=== PATIENT | female | born 1990 ===

== ENCOUNTER 2021-12-04 08:35 | Outpatient (REF) | payer OTHER, SELFPAY ==
[2021-12-04 09:06] LABS: Mean Corpuscular HGB Conc 33.3 g/dl (31.0-35.0); Mean Corpuscular Hemoglobin 29.6 pg (27.0-33.0); Mean Corpuscular Volume 88.8 fL (80.0-98.0); Mean Platelet Volume 10.2 fL (9.4-12.3); Platelet Count 270 X10*3/uL (160-400); Red Blood Count 4.73 X10*6/uL (4.20-5.50); Red Cell Distribution Width 12.3 % (11.0-16.0); White Blood Count 7.4 X10*3/uL (4.8-10.8)
[2021-12-04 09:53] LABS: Alanine Aminotransferase 11 U/L (0-31); Albumin Level 4.1 g/dL (3.5-5.0); Alkaline Phosphatase 55 U/L (39-117); Anion Gap 10 (12-20); Aspartate Amino Transferase 13 U/L (5-31); Bilirubin Total 0.6 mg/dL (0.0-1.0); Blood Urea Nitrogen 9 mg/dL (9-16); Calcium 9.2 mg/dL (8.4-10.2); Carbon Dioxide 25 mmol/L (22-29); Chloride 107 mmol/L (96-108); Estimated Glomerular Filt Rate > 60; Glucose Fasting 95 mg/dL (60-99); Potassium 4.4 mmol/L (3.3-5.1); Sodium 138 mmol/L (135-145); Total Protein 7.1 g/dL (6.5-8.0)
[2021-12-04 10:15] LABS: TSH reflex Free T4 1.66 uIU/mL (0.32-4.0)
== END 2021-12-04 08:36 | disposition home or self-care (01) ==
LOC: HO.LAB 08:35
PROVIDERS: PCP Physician Assistant; Visit Provider Physician Assistant
DX: Z13.29 Encounter for screening for other suspected endocrine disorder (principal)
CPT/HCPCS: 36415; 80053; 84443; 85027

== ENCOUNTER 2022-06-19 10:43 | Outpatient (REF) | payer OTHER, SELFPAY ==
--- NOTE | ~2022-06-19 | XR_ITS ---
EXAMINATION: XR SACRUM AND COCCYX CLINICAL INFORMATION: M53.3 - Sacrococcygeal disorders, not elsewhere classified COMPARISON: Lumbar spine radiographs 10/15/2015. TECHNIQUE: The sacrum and coccyx are imaged together in a total of 3 views. FINDINGS: There is transitional vertebrae at L5 with left hemisacralization right bhavna lumbarization. The SI joints and visualized sacrum are unremarkable. The lumbosacral junction shows no spondylolisthesis or retrolisthesis or disc narrowing. No erosive changes. Bowel gas unremarkable. Bony mineralization normal. XR/XR sacrum coccyx min 2V IMPRESSION: 1. 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 2. Unremarkable SI joints and visualized sacrum.
== END 2022-06-19 10:44 | disposition home or self-care (01) ==
LOC: HO.XRAY 10:43
PROVIDERS: PCP Physician Assistant; Visit Provider Physician Assistant
DX: M53.3 Sacrococcygeal disorders, not elsewhere classified (principal)
CPT/HCPCS: 72220

== ENCOUNTER 2022-10-21 13:17 | Outpatient (REF) | payer OTHER, SELFPAY | END 2022-10-21 13:18 | disposition home or self-care (01) | LOC: HO.LAB 13:17 | PROVIDERS: PCP Physician Assistant; Visit Provider Physician Assistant | DX: Z78.9 Other specified health status (principal) | CPT/HCPCS: 36415; 86787 ==

== ENCOUNTER 2023-03-06 09:14 | Outpatient (REF) | payer OTHER, SELFPAY ==
[2023-03-06 09:45] LABS: Hematocrit 41.9 % (37.0-47.0); Hemoglobin 14.2 g/dl (12.0-16.0); Mean Corpuscular HGB Conc 33.9 g/dl (31.0-35.0); Mean Corpuscular Hemoglobin 30.1 pg (27.0-33.0); Mean Corpuscular Volume 88.8 fL (80.0-98.0); Mean Platelet Volume 10.7 fL (9.4-12.3); Platelet Count 297 X10*3/uL (160-400); Red Blood Count 4.72 X10*6/uL (4.20-5.50); Red Cell Distribution Width 12.1 % (11.0-16.0); White Blood Count 6.8 X10*3/uL (4.8-10.8)
[2023-03-06 10:15] LABS: Alanine Aminotransferase 8 U/L (0-31); Albumin Level 4.2 g/dL (3.5-5.0); Alkaline Phosphatase 45 U/L (39-117); Anion Gap 10 (12-20); Aspartate Amino Transferase 13 U/L (5-31); Bilirubin Total 0.4 mg/dL (0.0-1.0); Blood Urea Nitrogen 9 mg/dL (9-16); Calcium 9.5 mg/dL (8.4-10.2); Carbon Dioxide 27 mmol/L (22-29); Chloride 105 mmol/L (96-108); Estimated Glomerular Filt Rate > 60; Glucose Fasting 93 mg/dL (60-99); Potassium 4.1 mmol/L (3.3-5.1); Sodium 138 mmol/L (135-145); Total Protein 7.2 g/dL (6.5-8.0)
== END 2023-03-06 09:15 | disposition home or self-care (01) ==
LOC: HO.LAB 09:14
PROVIDERS: PCP Physician Assistant; Visit Provider Physician Assistant
DX: Z13.1 Encounter for screening for diabetes mellitus (principal); Z13.0 Encounter for screening for diseases of the blood and blood-forming organs and certain disorders involving the immune mechanism
CPT/HCPCS: 36415; 80053; 85027

== ENCOUNTER 2023-09-25 09:19 | Outpatient (AMB) | payer OTHER, SELFPAY ==
--- NOTE | 2023-09-25 10:14 | MHC.OFFWIV ---
Intake Vital Signs 09/25/23 10:15 Height 4 ft 11 in BP 110/70 Blood Pressure Location Rt brachial Position Sitting Pulse 76 Pulse Source Pulse Oximeter Temp 98.8 F Temp Source Oral Pulse Oximetry (%) 99 Oxygen Delivery Method Room Air Intake Visit Reasons: Sore throat Intake Note: Pt is here for a sore throat that started last night at 8 pm and she feels like it is going into her ears and is bothering her ears Patient Tobacco Use Status: Never used Tobacco Allergies amoxicillin Adverse Reaction (Intermediate, Verified 09/25/23 10:17) Vomiting HPI Sore throat HPI Details Patient is a 33-year-old female comes to the walk-in clinic complaining of acute sore throat started last night, that radiates to both of her ears. She reports that her kids had influenza last week, but no strep throat contacts that she is aware of. She denies postnasal drip, cough, fever or chills, nausea vomiting or diarrhea, headache or dizziness or vertigo, weakness, myalgias or malaise, loss of sense of taste or smell, or other significant associated symptoms. [facility] Surgical History History of wisdom tooth extraction History of salpingectomy Family History Mother Diabetes Hypercholesteremia Father No problems noted. Maternal Grandmother Stroke Sister Leukemia Other Mental health disorder Substance use disorder Social History Housing: House Alcohol intake: current Alcohol intake frequency: holidays/special occasions only Alcohol type: beer Patient Tobacco Use Status: Never used Tobacco e-Cigarette/Vaping Use: Never Used Second Hand Smoke Exposure: No service: No Current occupational status: employed Current occupation: [employer] Current occupational exposures/hazards: No Cognitive needs: No Hearing needs: No Vision needs: Yes (contacts/ glasses) Review of Systems Const All systems reviewed & are unremarkable except as noted in HPI and below Physical Exam Vital Signs: Last Vital Signs Temp 98.8 F 09/25/23 10:15 Pulse 76 09/25/23 10:15 BP 110/70 09/25/23 10:15 Pulse Ox 99 09/25/23 10:15 Oxygen Delivery Method Room Air 09/25/23 10:15 Const General: cooperative, healthy appearing, comfortable, no acute distress, alert, awake, Physically active and well groomed; No anxious, diaphoretic, intoxicated appearing, poor hygiene or tired appearing Nutritional Appearance: average body habitus Orientation/consciousness: oriented to person Limitations: no limitations HEENT Head: Yes normal to inspection, Yes normocephalic and Yes atraumatic Ears: hearing grossly normal bilaterally, external ears normal, TM's normal bilaterally and EAC's normal General nose exam: Normal external nose present, Normal nares present, No nasal polyps present, Normal nasal mucous membranes and turbinates present, Normal septum present and No nasal discharge present Face and sinus: Yes normal facial exam, Yes sinuses nontender and Yes face symmetric Mouth: Normal oral and palatal mucosa present, lip normal and tongue normal Throat: Yes uvula midline, Yes abnormal tonsil (mildly erythematous bilaterally), No peritonsillar mass, No postnasal drainage, No uvular edema and No cobblestoning Eyes General: appearance normal, both eyes and all related structures Neck Neck: Yes normal visual inspection, Yes full ROM, Yes no lymphadenopathy, Yes trachea midline, Yes supple, No anterior neck swelling, Yes lymphadenopathy, Yes tender (Anterior cervical lymphadenopathy), Yes no JVD and No submandibular swelling Chest Chest palpation & inspection: normal palpation of entire chest wall Resp Effort & Inspection: normal respiratory effort, able to speak in complete sentences, no audible wheezes, no cough, no grunting, not labored, no nasal flaring, no retractions and symmetric chest movement Auscultation: clear to auscultation bilaterally, no crackles, no rales, no rhonchi, no wheezes, lung sounds not diminished and No rub present Cardio Palpation: normal PMI Rate: regular rate Rhythm: regular rhythm Heart sounds: S1 normal heart sound present and S2 normal heart sound present Skin Other: Good color, warm and dry Neuro General: oriented to person Psych Appearance: grossly normal Mental Status: mental status grossly normal Speech and movement: Normal speech and movement present Affect: normal affect Attitude: cooperative Thought process: Normal thought process present Insight: Good insight present (Psych) Judgement: Good judgement present (Psych) Results AMB Rapid Strep AMB Rapid Strep Positive Last Edit by Cherrie Etienne CMA on 09/25/23 10:31 Results Reviewed Results Reviewed: Laboratory Last Values Strep Scn Rapid Clinic Positive 09/25/23 10:31 Assessment & Plan Assessment & Plan (1) Strep pharyngitis: Code(s): J02.0 - Streptococcal pharyngitis Plan: Patient with acute strep pharyngitis, positive on rapid strep test today. Will write her for cephalexin as she has a severe reaction with vomiting to penicillins. Discussed transmission precautions. Pending respiratory panel to rule out flu COVID and RSV. She knows to follow up if symptoms persist or worsen. Orders: Orders SARS-CoV2/FLU/RSV Today R05.9 - Cough, unspecified AMB Rapid Strep Screen Today Z13.9 - Encounter for screening, unspecified Medications: New cephalexin 500 mg PO BID 10 days 20 caps 0RF Coding Level of Care Code Est Pt Level 4 (53732) Diagnoses Strep pharyngitis J02.0
[2023-09-25 10:15] VITALS: BP 110/70; PULSE 76; TEMP 37.1; O2SAT 99
== END 2023-09-25 11:30 | disposition home or self-care (01) ==
PROVIDERS: PCP Physician Assistant; Visit Provider Physician Assistant Medical
DX: J02.0 Streptococcal pharyngitis (principal); J02.9 Acute pharyngitis, unspecified
CPT/HCPCS: 87880; 99051; 99214

== ENCOUNTER 2023-09-25 13:40 | Outpatient (REF) | payer OTHER, SELFPAY ==
[2023-09-25 15:02] LABS: Influenza A PCR NEGATIVE (Negative); Influenza B PCR NEGATIVE (Negative); Resp Syncy Virus RNA Qual PCR NEGATIVE (Negative); SARS COV2 PCR INHOUSE NEGATIVE (Negative)
== END 2023-09-25 13:41 | disposition home or self-care (01) ==
LOC: HO.LNP 13:40
PROVIDERS: Visit Provider Physician Assistant Medical
DX: R05.9 Cough, unspecified (principal)
CPT/HCPCS: 0241U

== ENCOUNTER 2023-12-14 15:46 | Outpatient (AMB) | payer OTHER, SELFPAY ==
--- NOTE | 2023-12-14 15:48 | MHC.PC.OV ---
Vital Signs 12/14/23 15:53 Height 4 ft 11 in Weight 153 lb 6 oz BMI 31.0 BP 110/66 Blood Pressure Location Lt brachial Position Sitting Pulse 80 Pulse Source Pulse Oximeter Pulse Oximetry (%) 99 Oxygen Delivery Method Room Air Intake Visit Reasons: Annual Exam Intake Note: Patient is here today for a physical. 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 Accompanied by: Self / Same As Patient Is last menstrual period known: Yes Last menstrual period: 12/12/23 Allergies amoxicillin Adverse Reaction (Intermediate, Verified 12/14/23 16:08) Vomiting Medication List - Last Reconciled 12/14/23 by Parviz Joshi PA-C No Known Home Meds Tobacco use date assessed: 12/14/23 Dental Screening Dental Screen Date: 12/14/23 Did you have a dental visit in the last 12 months?: Yes Did you have a dental problem in the last 6 months where you did not have access to dental care?: No Was dental information given to patient?: Patient has dentist HPI Annual Exam HPI Details Patient is a 33-year-old female here today for a annual physical.? Patient does not have any past medical history does not take any chronic medications. Concerns-- > reports last few weeks having intermittent episodes of palpitations that are short-lived. She otherwise denies any dizziness, chest pain vision issues. .. Obesity: Today's BMI at 31. She feels somewhat upset with herself as she is gained some more weight. She will try to work hard on losing weight again. 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 does get a flu vac every year, Needs Tdap [facility] Surgical History History of wisdom tooth extraction History of salpingectomy Family History Mother Diabetes Hypercholesteremia Father No problems noted. Maternal Grandmother Stroke Sister Leukemia Other Mental health disorder Substance use disorder Social History (Updated 12/14/23 @ 16:12 by Parviz Joshi PA-C) Housing: House Alcohol intake: current Alcohol intake frequency: holidays/special occasions only Alcohol type: beer Patient Tobacco Use Status: Never used Tobacco e-Cigarette/Vaping Use: Never Used Second Hand Smoke Exposure: No Substance Use Type: Marijuana service: No Current occupational status: employed Current occupation: [employer] Current occupational exposures/hazards: No Cognitive needs: No Hearing needs: No Vision needs: Yes (contacts/ glasses) Female Reproductive History Menstrual Date of last menstrual period: 12/12/23 Questionnaire PHQ-9 Over the last 2 weeks, how often have you been bothered by any of the following problems? 1. Little interest or pleasure in doing things: not at all 2. Feeling down, depressed, or hopeless: not at all 3. Trouble falling or staying asleep, or sleeping too much: not at all 4. Feeling tired or having little energy: not at all 5. Poor appetite or overeating: not at all 6. Feeling bad about yourself - or that you are a failure or have let yourself or your family down: not at all 7. Trouble concentrating on things, such as reading the newspaper or watching television: not at all 8. Moving or speaking so slowly that other people could have noticed. Or the opposite - being so fidgety or restless that you have been moving around a lot more than usual: not at all 9. Thoughts that you would be better off or of hurting yourself in some way: not at all Total score: 0 Depression Screening Interpretation: Negative Depression Screening Done: Yes 61925 - PHQ-9 Billing: Yes Source: Developed by Drs. Abe Loya, Manju Lagunas, Onur Santos and colleagues, with an educational blake from [employer]. Thrive Questionnaire Date Thrive assessed: 12/14/23 I am a: Patient What is your living situation today?: I have a steady place to live Within the past 12 months, did the food you bought not last and you didn't have the money to get more?: Never true Within the past 12 months, did you worry whether your food would run out before you got money to buy more?: Never true Do you have trouble paying for medicines?: No Do you have trouble getting transportation to medical appointments?: No Do you have trouble paying your heating and electricity bill?: No Do you have trouble taking care of your child, family member or friend?: No Do you have trouble with day-to-day activities such as bathing, preparing meals, shopping, managing finances, etc.?: No Are you currently unemployed and looking for a job?: No Are you interested in more education?: No Please select the resources that you would like help with: None Currently or been in a relationship where the following occur: no concerns reported THRIVE Score: 0 AUDIT C Alcohol Use Questionnaire (AUDIT-C) 1. How often do you have a drink containing alcohol?: Never 2. How many drinks containing alcohol do you have on a typical day when you are drinking?: 1 or 2 Total Score: 0 CISCO-7 AMB Questionnaire CISCO-7 Date CISCO - 7 assessed: 12/14/23 Feeling nervous, anxious, or on edge: 1 = Several days Not being able to stop or control worryin = Not at all Worrying too much about different things: 1 = Several days Trouble relaxin = Several days Being so restless that it is hard to sit still: 0 = Not at all Becoming easily annoyed or irritable: 0 = Not at all Feeling afraid as if something awful might happen: 0 = Not at all Total CISCO-7 score (0-4 normal; 5-9 mild; 10-14 moderate; 15-21 severe): 3 Source: Developed by Drs. Abe Loya, Manju Lagunas, Onur Santos and colleagues, with an educational blake from [employer]. CISCO-7 Assessment Billing CISCO-7 Assessment Tool: CISCO-7 Assessment 37635 Review of Systems Const Denies body aches, Denies chills, Denies excessive sweating, Denies fatigue, Denies fever(s) and Denies headache(s) Eyes Denies blurry vision ENT Denies dysphagia, Denies vertigo, Denies dizziness, Denies headache(s), Denies hearing loss and Denies tinnitus Card Denies chest pain, Denies chest pain with activity, Denies syncope, Reports irregular heart rhythm and Denies dyspnea Resp Denies chest congestion, Denies cough, Denies hemoptysis, Denies dyspnea and Denies wheezing GI Denies abdominal pain, Denies melena, Denies hematochezia, Denies coffee ground emesis, Denies dysphagia, Denies diarrhea, Denies nausea and Denies vomiting Denies urinary frequency, Denies dysuria, Denies urinary hesitancy and Denies urinary urgency Musc Denies arthralgias, Denies limited range of motion, Denies muscle cramps and Denies muscle weakness Skin/Breast Denies rash and Denies skin ulcer Neuro Denies Abnormal speech present, Denies confusion, Denies vertigo, Denies dizziness, Denies syncope, Denies headache(s), Denies memory loss and Denies seizure-like activity Psych Denies anxiety, Denies confusion, Denies depression, Denies memory loss, Denies panic attacks and Denies paranoia Endo Denies excessive sweating, Denies fatigue, Denies flushing, Denies polydipsia and Denies polyuria Aller/Immun Denies wheezing Physical exam (Primary Care) Vital Signs: Last Vital Signs Pulse 80 12/14/23 15:53 BP 110/66 12/14/23 15:53 Pulse Ox 99 12/14/23 15:53 Oxygen Delivery Method Room Air 12/14/23 15:53 BMI result Body Mass Index 31.0 Tobacco/Smoking Status: Tobacco use Status Tobacco use date assessed 12/14/23 12/14/23 15:56 Patient Tobacco Use Status Never used Tobacco 12/14/23 16:12 e-Cigarette/Vaping Use Never Used 12/14/23 16:12 PHQ-9: PHQ-9 Score PHQ-9: Total score 0 12/14/23 16:13 Depression Screening Interpretation: Negative Thrive Assessment: Date of Thrive Assessment Date Thrive assessed 12/14/23 12/14/23 15:48 Currently or been in a relationship where the following occur: no concerns reported Const General: cooperative, comfortable, no acute distress, alert and awake; No confusion Orientation/consciousness: oriented to person, oriented to place, patient oriented x3 and No confusion HENMT Head: Yes normocephalic Ears: external ears normal and TM's normal bilaterally Face and sinus: No sinus tenderness Mouth: Normal oral and palatal mucosa present and tongue normal Teeth and gingiva: dentition normal and gingiva normal Throat: Yes posterior oropharynx normal, Yes tonsils normal and Yes uvula midline Eyes Conjunctivae: conjunctivae normal Sclerae: sclerae normal Pupils: Equal, round and reactive pupils present EOM: EOMs intact bilaterally Direct Ophthalmoscopy: No no photophobia Neck Neck: Yes no lymphadenopathy, No tender and Yes no JVD Thyroid: Thyroid normal Carotids: no bruits Chest Chest palpation & inspection: no tenderness Resp Effort & Inspection: normal respiratory effort, no audible wheezes, not labored and no stridor Auscultation: no crackles, no rales, no rhonchi and no wheezes Cardio Jugular venous distension: no JVD Rate: regular rate, not bradycardic and not tachycardic Rhythm: regular rhythm Bruits: no carotid bruits Peripheral pulses: Peripheral pulses 2+ throughout GI Inspection: Yes normal to inspection, No abdominal wall ecchymosis and No visible herniation Palpation (GI): Soft to palpation, nontender, no guarding, not rigid and No hepatosplenomegaly present Auscultation: normoactive bowel sounds General: Yes no CVA tenderness Back/Spine/Pelvis Back: no CVA tenderness and No back tenderness Cervical Spine: cervical ROM normal Thoracic/Lumbar Spine: thoracic and lumbar spine normal to inspection, straight leg raise negative bilaterally, No thoraco-lumbar ROM limited and No lumbar spinal tenderness Skin Lesions: no lesions Rashes: no rashes Wounds: no wounds Neuro General: oriented to person, oriented to place, patient oriented x3, CN's II-XI intact bilaterally and No confusion Cranial nerves: Yes Equal, round and reactive pupils present and Yes Normal accommodation reflex present Cognition (Neuro): normal cognition Speech: No Abnormal speech present Gait exam (Neuro): Normal gait present Motor exam (neuro): 5/5 motor strength present throughout Extrem Right upper extremity: full ROM; no cyanosis Left upper extremity: full ROM; no cyanosis Right lower extremity: no edema Left lower extremity: no edema Psych Appearance: grossly normal Mental Status: mental status grossly normal Affect: normal affect Attitude: cooperative Thought process: Normal thought process present Immunizations Boostrix Tdap 2.5 Lf unit-8 mcg-5 Lf/0.5 mL intramuscular syringe Performing Provider: Parviz Joshi PA-C Performing Location: [facility] Administered by: MAXIMILIAN Martínez on 12/14/23 16:37 Dose Route Admin Location Dispensed Lot Number Expiration Date NDC 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 0.5 mL IM Left Deltoid 0.5 mL [id number] 02/03/26 [id number] [employer] VIS Given Date VIS Provided VIS Publication Date 06/18/24 Single Vaccine 21 Eligibility Eligibility Date Funding Source Not [facility] Eligible 12/14/23 Private Assessment and Plan Assessment & Plan (1) Annual physical exam: Code(s): Z00.00 - Encounter for general adult medical examination without abnormal findings (2) Screening for diabetes mellitus (DM): Code(s): Z13.1 - Encounter for screening for diabetes mellitus (3) Heart palpitations: Code(s): R00.2 - Palpitations (4) Anxiety: Code(s): F41.9 - Anxiety disorder, unspecified Plan: Patient's CISCO-7 score 3, does seem to be suffering with the mild anxiety. Not interested in medication or mental health therapy at this time. Orders: Orders Comprehensive [place]. Panel Fast Today Z13.1 - Encounter for screening for diabetes mellitus Complete Blood Count no Diff Today Z13.1 - Encounter for screening for diabetes mellitus TDaP Immunization Today Z13.1 - Encounter for screening for diabetes mellitus, Z23 - Encounter for immunization ECG 5 day holter monitor Today R00.2 - Palpitations Medications: New Boostrix Tdap (diphth,pertus(acell),tetanus) 0.5 mL IM ONCE 0.5 mL 0RF NS Z13.1 - Encounter for screening for diabetes mellitus, Z23 - Encounter for immunization Coding Level of Care Code Est Pt Prev Care 18-39y(90025) Diagnoses Annual physical exam Z00.00 Screening for diabetes mellitus (DM) Z13.1 Heart palpitations R00.2 Anxiety F41.9 Additional Codes CISCO-7 Assessment Billing - CISCO-7 Assessment Tool: CISCO-7 Assessment 29704 ([id number])
[2023-12-14 15:53] VITALS: BP 110/66; PULSE 80; O2SAT 99; BMI 31.0
== END 2023-12-14 16:31 | disposition home or self-care (01) ==
PROVIDERS: PCP Physician Assistant; Visit Provider Physician Assistant
DX: Z23 Encounter for immunization (principal); Z00.00 Encounter for general adult medical examination without abnormal findings; R00.2 Palpitations; F41.9 Anxiety disorder, unspecified
CPT/HCPCS: 90471; 90715; 99395

== ENCOUNTER → 2023-12-29 06:36 | Outpatient (REF) | payer OTHER, SELFPAY ==
--- NOTE | 2023-12-29 07:05 | HM_ITS ---
* Total monitoring time 5 days. * Underlying rhythm is sinus with an average rate of 77/Min. * Rare supraventricular ectopy with very short runs. * Rare ventricular ectopy. * No significant pauses or AV blocks. * No patient markers or diary events. MTDD
[2023-12-29 07:42] LABS: Hematocrit 40.8 % (37.0-47.0); Hemoglobin 13.7 g/dl (12.0-16.0); Mean Corpuscular HGB Conc 33.6 g/dl (31.0-35.0); Mean Corpuscular Hemoglobin 30.4 pg (27.0-33.0); Mean Corpuscular Volume 90.5 fL (80.0-98.0); Mean Platelet Volume 10.7 fL (9.4-12.3); Platelet Count 309 X10*3/uL (160-400); Red Blood Count 4.51 X10*6/uL (4.20-5.50); Red Cell Distribution Width 12.2 % (11.0-16.0); White Blood Count 6.9 X10*3/uL (4.8-10.8)
[2023-12-29 08:03] LABS: Alanine Aminotransferase 11 U/L (0-31); Albumin Level 4.3 g/dL (3.5-5.0); Alkaline Phosphatase 48 U/L (39-117); Anion Gap 9 (12-20); Aspartate Amino Transferase 17 U/L (5-31); Bilirubin Total 0.8 mg/dL (0.0-1.0); Blood Urea Nitrogen 10 mg/dL (9-16); Calcium 9.6 mg/dL (8.4-10.2); Carbon Dioxide 26 mmol/L (22-29); Chloride 107 mmol/L (96-108); Estimated Glomerular Filt Rate > 60; Glucose Fasting 91 mg/dL (60-99); Potassium 3.6 mmol/L (3.3-5.1); Sodium 138 mmol/L (135-145); Total Protein 7.2 g/dL (6.5-8.0)
== END ==
LOC: HO.CARD 06:36
PROVIDERS: PCP Physician Assistant; Visit Provider Physician Assistant
DX: Z13.1 Encounter for screening for diabetes mellitus (principal); R00.2 Palpitations
CPT/HCPCS: 36415; 80053; 85027; 93242

== ENCOUNTER → 2023-12-29 07:05 | Outpatient (BNV) | payer OTHER, SELFPAY | PROVIDERS: PCP Physician Assistant; Visit Provider Internal Medicine | DX: I47.10 Supraventricular tachycardia, unspecified (principal) | CPT/HCPCS: 93244 ==

== ENCOUNTER 2024-07-04 15:46 | Outpatient (AMB) | payer OTHER, SELFPAY ==
[2024-07-04 15:57] VITALS: BP 122/76; PULSE 83; TEMP 36.8; O2SAT 97; BMI 31.3
--- NOTE | 2024-07-04 15:57 | AM.OFFWIN_ITS ---
Intake Vital Signs 07/04/24 15:57 Height 4 ft 11 in Weight 155 lb BMI 31.3 BP 122/76 Blood Pressure Location Rt brachial Position Sitting Pulse 83 Pulse Source Pulse Oximeter Temp 98.3 F Temp Source Oral Pulse Oximetry (%) 97 Oxygen Delivery Method Room Air Intake Visit Reasons: EP sore throat Intake Note: Pt is here today c/o sorethroat Patient Tobacco Use Status: Never used Tobacco Allergies amoxicillin Adverse Reaction (Intermediate, Verified 07/04/24 15:57) Vomiting HPI HPI Comments History of Present Illness Details Ongoing ST pain She admits to congestion x 2 weeks Sinuses improved and she was negative for covid Lastnight onset in throat Pain in throat with white spots She denies fever or chills She denies medicine for it No cough, SOB or CP PFSH Surgical History History of wisdom tooth extraction History of salpingectomy Family History Mother Diabetes Hypercholesteremia Father No problems noted. Maternal Grandmother Stroke Sister Leukemia Other Mental health disorder Substance use disorder Social History (Updated 12/14/23 @ 16:12 by Parviz Joshi PA-C) Housing: House Alcohol intake: current Alcohol intake frequency: holidays/special occasions only Alcohol type: beer Patient Tobacco Use Status: Never used Tobacco e-Cigarette/Vaping Use: Never Used Second Hand Smoke Exposure: No Substance Use Type: Marijuana service: No Current occupational status: employed Current occupation: [employer] Current occupational exposures/hazards: No Cognitive needs: No Hearing needs: No Vision needs: Yes (contacts/ glasses) Review of Systems Const Denies chills and Denies fever(s) ENT Denies otalgia, Reports nasal congestion and Reports sore throat Card Denies chest pain and Denies dyspnea Resp Denies cough and Denies dyspnea Skin/Breast Denies rash Physical Exam Vital Signs: Last Vital Signs Temp 98.3 F 07/04/24 15:57 Pulse 83 07/04/24 15:57 BP 122/76 07/04/24 15:57 Pulse Ox 97 07/04/24 15:57 Oxygen Delivery Method Room Air 07/04/24 15:57 BMI result Body Mass Index 31.3 General: Non-toxic, NAD. Speaking full sentences, handling secretions Skin: Warm dry throughout Eye: EOMI HENT: Airway patent. Uvula midline. + pharyngeal erythema without exudates, trismus or edema. No SEQUINS SPOOLER. Bilateral canals clear. TM non-erythematous, non-bulging. No TM perforation or hemotympanum noted. Respiratory: No respiratory distress Cardiac: RRR. Neurology: Alert. No aphasia or facial droop. Gait without abnormality Psych: Good mood and affect Results AMB Rapid Strep AMB Rapid Strep Positive Last Edit by Darling Dumont CMA on 07/04/24 16:17 Results Reviewed Results Reviewed: Laboratory Last Values Strep Scn Rapid Clinic Positive 07/04/24 16:04 Assessment & Plan Assessment & Plan (1) Strep pharyngitis: Code(s): J02.0 - Streptococcal pharyngitis Plan: Patient seen and evaluated. + strep on exam Azithromycin New toothbrush after antibiotics Patient gave verbal understanding and had no additional questions or concerns at time of discharge All questions answered Orders: Orders AMB Rapid Strep Screen Today Z13.9 - Encounter for screening, unspecified Medications: New azithromycin For 250 mg dose pack: take 500 mg today (day 1), then 250 mg for 4 days (days 2-5) PO 6 tabs 0RF Coding Level of Care Code Est Pt Level 3 (68990) Diagnoses Strep pharyngitis J02.0
== END 2024-07-04 16:27 | disposition home or self-care (01) ==
PROVIDERS: PCP Physician Assistant; Visit Provider Physician Assistant
DX: Z13.9 Encounter for screening, unspecified (principal); J02.0 Streptococcal pharyngitis

== ENCOUNTER → 2024-07-04 15:46 | Outpatient (BNVA) | payer OTHER, SELFPAY | PROVIDERS: PCP Physician Assistant; Visit Provider Physician Assistant | DX: J02.0 Streptococcal pharyngitis (principal) | CPT/HCPCS: 87880 ==

== ENCOUNTER 2024-08-29 12:16 | Outpatient (AMB) | payer OTHER, SELFPAY ==
[2024-08-29 12:47] VITALS: BP 112/70; PULSE 72; TEMP 36.8; O2SAT 99
--- NOTE | 2024-08-29 12:47 | MHC.OFFWIV ---
Intake Vital Signs 08/29/24 12:47 Weight 152 lb BP 112/70 Blood Pressure Location Rt brachial Position Sitting Pulse 72 Pulse Source Pulse Oximeter Temp 98.2 F Temp Source Oral Pulse Oximetry (%) 99 Oxygen Delivery Method Room Air Intake Visit Reasons: EP Strep? Intake Note: Patient here for sore throat that has been present since Wednesday. Patient Tobacco Use Status: Never used Tobacco Allergies amoxicillin Adverse Reaction (Intermediate, Verified 08/29/24 12:59) Vomiting Do you need a note to return to daycare/school/sports/work: Yes HPI HPI Comments History of Present Illness Details History - The patient is a 34-year-old female presenting with a possible strep throat. - Reports a sore throat with blood in the back of the throat for two days. - Sore throat associated with pain on swallowing and throat palpation; no fever present. - Recurrent history of strep throat infections; a potential ENT referral was previously considered. - Previously resolved similar infection with a Z-Jef due to amoxicillin allergy. - Denies cough, mentions increased sneezing. 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 Physical Exam General: Cooperative, healthy appearing, comfortable and no acute distress Orientation/consciousness: Patient oriented x3 Limitations: No limitations Head: Normal to inspection Ears: Hearing grossly normal bilaterally, external ears normal Nose: Normal external nose present, Normal nares present and No nasal discharge present Face and sinus: Normal facial exam Mouth: Normal oral and palatal mucosa present and moist mucous membranes Throat: Yes tonsils normal, Yes uvula midline. Posterior oropharynx erythema with exudates noted Eyes: Appearance normal, both eyes and all related structures Neck: Normal visual inspection Respiratory: Normal respiratory effort, able to speak in complete sentences, No cough, no respiratory distress, not tachypneic, no tripod positioning and no use of accessory muscles Skin: No rashes or lesions noted Neuro: Patient oriented x3 Extremities: Normal to inspection and Yes no clubbing, cyanosis or edema PFSH Surgical History History of wisdom tooth extraction History of salpingectomy Family History Mother Diabetes Hypercholesteremia Father No problems noted. Maternal Grandmother Stroke Sister Leukemia Other Mental health disorder Substance use disorder Social History (Updated 12/14/23 @ 16:12 by Parviz Joshi PA-C) Housing: House Alcohol intake: current Alcohol intake frequency: holidays/special occasions only Alcohol type: beer Patient Tobacco Use Status: Never used Tobacco e-Cigarette/Vaping Use: Never Used Second Hand Smoke Exposure: No Substance Use Type: Marijuana service: No Current occupational status: employed Current occupation: [employer] Current occupational exposures/hazards: No Cognitive needs: No Hearing needs: No Vision needs: Yes (contacts/ glasses) Review of Systems Const All systems reviewed & are unremarkable except as noted in HPI and below Physical Exam Vital Signs: Last Vital Signs Temp 98.2 F 08/29/24 12:47 Pulse 72 08/29/24 12:47 BP 112/70 08/29/24 12:47 Pulse Ox 99 08/29/24 12:47 Oxygen Delivery Method Room Air 08/29/24 12:47 Results AMB Rapid Strep AMB Rapid Strep Positive Last Edit by MAXIMILIAN Romano on 08/29/24 13:12 Assessment & Plan Assessment & Plan (1) Recurrent streptococcal pharyngitis: Code(s): J02.0 - Streptococcal pharyngitis Plan: Rapid strep in office is positive, PE remarkable for exudates in posterior oropharynx. The patient exhibits symptoms indicative of recurrentl strep throat. Due to her allergy to amoxicillin and history of successful resolution with azithromycin, Azithromycin was prescribed in a Z-Jef regimen for five days. The patient is to commence the medication immediately to alleviate symptoms. Supportive measures include hydration with cool liquids and ibuprofen for discomfort. Tylenol is advised if fever develops. An ENT consultation has been sent by her PCP for the repeated nature of these infections. A work excuse was given for the appropriate days needed for recovery upon initiation of antibiotic therapy. Patient was informed and verbally consented to the use of an ambient scribe for clinic note documentation during this visit Orders: Orders AMB Rapid Strep Screen Today Z13.9 - Encounter for screening, unspecified Medications: New azithromycin For 250 mg dose pack: take 500 mg today (day 1), then 250 mg for 4 days (days 2-5) PO 6 tabs 0RF Coding Level of Care Code Est Pt Level 3 (59008) Diagnoses Recurrent streptococcal pharyngitis J02.0
--- OUTSIDE RECORDS SUMMARY | 2024-08-29 15:20 | XMS_ITS | Encounter Summary ---
Author Organization [facility] Address [address] [place] [address] Care Team Providers Care Dietist Name Role Phone Aj Langston MD Primary Care Provider Un available Mee Gordon MD Primary Care Provider Orville Sears MD Primary Care Provider Unavail able Jason Post MD Primary Care Provider + [phone] Encounter Details Date Type Department Care Team Description 02/22/2018 Pt. Non Urgent Medic al Question Adult Medicine [address] [address] Aj Langston MD Social History Tobacco Use Types Packs/Day Years Used Date Smoking Tobacco: Never Smokeless Tobacco: Never Alcohol Use Standard Drinks/Week Comments No 0 (1 standard drink = 0.6 oz pur e alcohol) Financial Resource Strain Answer Date R ecorded How hard is it for you to pa y for the very basics like food, housing, medical care, and heating? Not very hard 02/19/2020 Intimate Partner Violence Answer Date R ecorded Within the last year, have y ou been afraid of your partner or ex-partner? No 01/24/2020 Within the last year, have y ou been humiliated or emotionally abused in other ways by your partner or ex-partner? No Within the last year, have y ou been kicked, hit, slapped, or otherwise physically hurt by your partner or ex-partner? No 01/24/2020 Within the last year, have y ou been raped or forced to have any kind of sexual activity by your partner or ex-partner? No 01/24/2020 Food Insecurity Answer Date Recorded Within the past 12 months, y ou worried that your food would run out before you got money to buy more. Never true 02/19/2020 Within the past 12 months, t he food you bought just didn't last and you didn't have money to get more. Never true 02/19/2020 Transportation Needs Answer Date Record ed In the past 12 months, has l ack of transportation kept you from medical appointments or from getting medications? No 01/27 In the past 12 months, has l ack of transportation kept you from meetings, work, or getting things needed for daily living? No 02/19/2020 Sex Assigned at Date Recorded Not on file documented as of this encounter Progress Notes * Cherry Null C.M.A. - 02/22/2018 8:46 AM EDTFrom: Kierra Kim To: Aj Langston MD Sent: 02/22/2018 8:28 AM EDT Subject: Neck pain Hello I just wanted to see if I should make an appointment to be seen. I have shoulder and neck pain. I been drinking ibuprofen and putting muscle rub for 3 days and nothing is working. Now I have allergies and everytime I sneeze it hurts I'm afraid it's getting worse or it will get worse with movement. I'm not sure why I have pain I dont know if I slept wrong. I am going into work right now I will keep my phone on me incase I need to call. documented in this encounter Plan of Treatment Not on file documented as of this encounter Visit Diagnoses Not on filedocumented in this encounter Care Teams Dietist Relationship Specialty Start Date End Date Aj Langston MD PCP - General Internal Medicine 04/27/17 Mee Gordon MD PCP - General Internal Medicine 10/14/18 03/02/19 Orville Gupta MD PCP - General Internal Medicine 03/03/19 08/27/19 Jason Post MD [address] [place] [id number] PCP - General Internal Medicine 08/28/19 documented as of this encounter
--- OUTSIDE RECORDS SUMMARY | 2024-08-29 15:20 | XMS_ITS | Encounter Summary ---
Author Organization [facility] Address [address] [place] [address] Care Team Providers Care Supervisory Aide Name Role Phone Mee Gordon MD Primary Care Provider Aj Constantino MD Primary Care Provider Un available Mee Gordon MD Primary Care Provider Orville Sears MD Primary Care Provider [facility] Jason Post MD Primary Care Provider [phone] Reason for Visit * Reason Comments E-prescribe Rx Request Encounter Details Date Type Department Care Team Description 04/26/2017 Refill CORRESPONDENCE RENEW CLERK - [place] [address] [place] [address] Emily Lujan CN [address] [place] [address] E-prescribe Rx Request Social History Tobacco Use Types Packs/Day Years [...] on file documented as of this encounter Miscellaneous Notes * Telephone Encounter - Joi Tanner CNM - 08/09/2017 10:47 AM EST Pt delivered 03/19/17 and f/u lab revealed nml iron level. * Telephone Encounter - Liss Fernandez RN - 08/09/2017 9:27 AM EST This pt is a [place] pt documented in this encounter Plan of Treatment Not on file documented as of this encounter Visit Diagnoses Not on filedocumented in this encounter Care Teams Supervisory Aide Relationship Specialty Start Date End Date Mee Gordon MD PCP - General Internal Medicine 09/24/16 04/26/17 Aj Langston MD PCP - General Internal Medicine 04/27/17 Mee Gordon MD PCP - General Internal Medicine 10/14/18 03/02/19 Orville Gupta MD PCP - General Internal Medicine 03/03/19 08/27/19 Jason Post MD [address] [place] [id number] PCP - General Internal Medicine 08/28/19 documented as of this encounter
--- OUTSIDE RECORDS SUMMARY | 2024-08-29 15:20 | XMS_ITS | Clinical Summary ---
Author Organization [facility] Address [address] [facility] [address] [place] [address] Care Team Providers Care Train Gate Attendant Name Role Phone Unavailable Primary Care Provider Unavailabl e Immunizations Name Administration Dates Next Due Influenza, seasonal, injectable, preservative fr ee 03/08/2024 Social History Tobacco Use Types Packs/Day Years Used Date Smoking Tobacco: Never Assessed Comments Unknown Sex and Gender Information Value Date Recorded Sex Assigned at Female 03/09/2024 11:46 AM EDT Legal Sex Male 11:45 AM EDT Gender Identity Female 03/09/2024 11:46 AM EDT Sexual Orientation Straight 03/09/2024 11 :46 AM EDT Plan of Treatment Health Maintenance Due Date Last Done Comments Depression Screening 1992 HIV Screening 1992 SDOH Screening 1992 Alcohol/Substance Use Screening 2004 Tobacco Screening 2004 Family Planning (PISQ) 2007 Hepatitis C Screening 2010 Hepatitis B Vaccines (1 of 3 - 19+ 3-dose series) 2011 Pap Smear 2013 Cervical Cancer Screening 2022 HPV/Cotest 2022 COVID-19 Vaccine ( - 2023-2 5 season) 2024 DTaP/Tdap/Td Vaccines (3 - T d or Tdap) 02/02/2029 02/02/2019, 02/10/2017 Zoster Vaccines (1 of 2) 2042 RSV Patients and Patients Aged 60 years or older (1 - 1-dose 75+ series) 2067 Influenza Vaccine Completed 03/08/2024, 04/29/2017 HIB Vaccines Aged Out No longer eligi ble based on patient's age to complete this topic HPV Vaccines Aged Out No longer eligi ble based on patient's age to complete this topic Hepatitis A Vaccines Aged Out No long er eligible based on patient's age to complete this topic IPV Vaccines Aged Out No longer eligi ble based on patient's age to complete this topic Meningococcal Vaccine Aged Out No layne danny eligible based on patient's age to complete this topic Pneumococcal Vaccine: Pediatrics (0 to 5 Years) and At-Risk Patients (6 to 49) Years) Aged Out No longer eligible b ased on patient's age to complete this topic RSV under 20 months Aged Out No longe r eligible based on patient's age to complete this topic Rotavirus Vaccines Aged Out No longer eligible based on patient's age to complete this topic Insurance , [address] [place] [id number]
--- OUTSIDE RECORDS SUMMARY | 2024-08-29 15:20 | XMS_ITS | Clinical Summary ---
Author Organization [facility] Address [address] [place] [address] Care Team Providers Care Track Fitter Name Role Phone Jason Post MD Primary Care Provider Unavaila ble Surgical History Surgery Date Site/Laterality Comments WISDOM TOOTH EXTRACTION PROCEDURE: HISTORICAL WISDOM TEETH EXTRACTION TUBAL LIGATION Bilateral PROCEDURE: HISTORICAL TUBAL LIGATION Medical History Medical History Date Comments Chronic back pain DX:Chronic martha k pain; COMMENT: r/t lower back disc fused after xray from pcp Asthma DX:Asthma; COMME NT: as a child, never as an adult Eczema DX:Eczema Musculoskeletal neck pain 2017 DX:Mus culoskeletal neck pain; COMMENT: flexeril History of hemorrhage 2016 DX:History of hemorrhage; COMMENT: no transfusion needed Family History Medical History Relation Name Comments Other: ovarian cancer Aunt mat Asthma Brother x2 Diabetes Maternal Grandfather hyperch olestemia Diabetes Maternal Grandmother hyperch olestemia Diabetes Mother Asthma Diabetes Paternal Grandfather hyperch olestemia Diabetes Paternal Grandmother hyperch olestemia Breast cancer Neg Hx Colon cancer Neg Hx Relation Name Status Comments Aunt mat Brother x2 Alive Father Alive Maternal Grandfather Alive Maternal Grandmother Alive Mother Alive Paternal Grandfather Paternal Grandmother Social History Tobacco Use Types Packs/Day Years Used Date Smoking Tobacco: Never Smokeless Tobacco: Never Alcohol Use Standard Drinks/Week Comments No 0 (1 standard drink = 0.6 oz pur e alcohol) Comments Unknown Sex and Gender Information Value Date Recorded Sex Assigned at Not on file Legal Sex Female 9:32 AM EST Gender Identity Not on file Sexual Orientation Not on file Obstetrics History Last Filed Vital Signs Vital Sign Reading Time Taken Comments Blood Pressure 111/71 02/10/2024 2:41 PM EDT Pulse 70 02/10/2024 2:41 PM EDT Temperature - - Respiratory Rate - - Oxygen Saturation - - Inhaled Oxygen Concentration - - Weight 68 kg (150 lb) 02/10/2024 2:41 PM EDT Height - - Body Mass Index - - Plan of Treatment Health Maintenance Due Date Last Done Comments Hepatitis B Vaccines (1 of 3 - 19+ 3-dose series) 2011 COVID-19 Vaccine (2023-2 5 season) 2024 Influenza Vaccine (#1) 2024 04/29/2017 Depression Screening 05/23/2024 HIV Screening 05/23/2024 Hepatitis C Screening 05/23/2024 Social Influencers of Health Screening 05/23/2024 Cervical Cancer Screening: P ap Smear 02/09/2027 02/10/2024, 02/20/2020, 01/24/2020 DTaP,Tdap,and Td Vaccines (3 - Td or Tdap) 02/02/2029 02/02/2019, 02/10/2017 HIB Vaccines Aged Out No longer eligi [...] on patient's age to complete this topic MMR Vaccines Aged Out No longer eligi ble based on patient's age to complete this topic Meningococcal ACWY Vaccine Aged Out N o longer eligible based on patient's age to complete this topic Meningococcal B Vacine Aged Out No lo nger eligible based on patient's age to complete this topic Pneumococcal Vaccine: Pediatrics (0 to 5 Years) and At-Risk Patients (6 to 64 Years) Aged Out No longer eligible b ased on patient's age to complete this topic RSV Immunization Patients Under 20 months Aged Out No longer eligible b ased on patient's age to complete this topic Varicella Vaccines Aged Out No longer eligible based on patient's age to complete this topic Procedures Procedure Name Priority Date/Time Associated Diagnosis Comments PAP SMEAR Routine 02/10/2024 from Last 3 Months or Most Recently Relevant to Health Maintenance Results * Pap smear (02/10/2024) 02/10/2024 Narrative HISTORICAL TESTING LAB RESULTING AGENCY - 02/17/2024 1:30 PM EDT [id number] THINPREP PAP, IMAGED: NEGATIVE FOR SQUAMOUS INTRAEPITHELIAL LESION AND MALIGNANCY NOTE: ??ADEQUACY DEEMED SATISFACTORY AFTER REPROCESSING WITH ACID WASH PROCEDURE TO REMOVE EXCESS BLOOD. MARIELA EDMONDS(ASCP) (CASE ELECTRONICALLY SIGNED 02 17 2024) RESULT OF APTIMA HIGH RISK HPV ASSAY: HIGH RISK HPV: ??NEGATIVE (SEROTYPES 16,18,31,33,35,39,45,51,52,56,58,59,66,68) COMPLETED ON 2024-02-14 ADEQUACY: SATISFACTORY ENDOCERVICAL/TRANSFORMATION ZONE COMPONENT PRESENT. SOURCE: THINPREP PAP HPV ANY DX: ??REFLEX 16 AND 18, CERVICAL, IMAGED CLINICAL INFORMATION: HPV ANY DIAGNOSIS. HORMONES, PAP HX NEGATIVE, [Z12.4] Colette Enriquez DO LAB CYTOLOGY ORDERABLES Final Result HISTORICAL TESTING LAB RESULTING AGENCY from Last 3 Months or Most Recently Relevant to Health Maintenance Care Teams Track Fitter Relationship Specialty Start Date End Date Jason Post MD PCP - General Internal Medicine 08/28/19
--- OUTSIDE RECORDS SUMMARY | 2024-08-29 15:20 | XMS_ITS | Encounter Summary ---
Author Organization [facility] Address [address] [place] [address] Care Team Providers Care Rehab Office Coordinator Name Role Phone Mee Gordon MD Primary Care Provider Aj Constantino MD Primary Care Provider Un available Mee Gordon MD Primary Care Provider Orville Sears MD Primary Care Provider [facility] Jason Post MD Primary Care Provider + [phone] Encounter Details Date Type Department Care Team Description 01/15/2017 Transfer Records Medical Records [address] [place] [address] Abstract, Provider Social History Tobacco Use Types Packs/Day Years [...] on file documented as of this encounter Plan of Treatment Not on file documented as of this encounter Visit Diagnoses Not on filedocumented in this encounter Care Teams Rehab Office Coordinator Relationship Specialty Start Date End Date Mee Gordon MD PCP - General Internal Medicine 09/24/16 04/26/17 Aj Langston MD PCP - General Internal Medicine 04/27/17 Mee Gordon MD PCP - General Internal Medicine 10/14/18 03/02/19 Orville Gupta MD PCP - General Internal Medicine 03/03/19 08/27/19 Jason Post MD [address] [place] [id number] PCP - General Internal Medicine 08/28/19 documented as of this encounter
--- OUTSIDE RECORDS SUMMARY | 2024-08-29 15:20 | XMS_ITS | Encounter Summary ---
Author Organization [facility] Address [address] [place] [address] Care Team Providers Care Talend Developer Name Role Phone Aj Langston MD Primary Care Provider Un available Mee Gordon MD Primary Care Provider Orville Sears MD Primary Care Provider Unavail able Jason Post MD Primary Care Provider + [phone] Encounter Details Date Type Department Care Team Description 05/03/2017 Release of Information Medical Records [address] [place] [address] Abstract, Provider Social History Tobacco Use Types [...] on filedocumented in this encounter Care Teams Talend Developer Relationship Specialty Start Date End Date Aj Langston MD PCP - General Internal Medicine 04/27/17 Mee Gordon MD PCP - General Internal Medicine 10/14/18 03/02/19 Orville Gupta MD PCP - General Internal Medicine 03/03/19 08/27/19 Jason Post MD [address] [place] [id number] PCP - General Internal Medicine 08/28/19 documented as of this encounter
--- OUTSIDE RECORDS SUMMARY | 2024-08-29 15:20 | XMS_ITS | Encounter Summary ---
Author Organization [facility] Address [address] [place] [address] Care Team Providers Care Certified Orthotic Fitter Name Role Phone Aj Langston MD Primary Care Provider Un available Mee Gordon MD Primary Care Provider Orville Sears MD Primary Care Provider Unavail able Jason Post MD Primary Care Provider + [phone] Reason for Visit * Reason Onset Date Comments Rash 10/27/2017 Encounter Details Date Type Department Care Team Description 10/27/2017 Pt. Non Urgent Medic al Question Adult Medicine [address] [address] Aj Langston MD Social History Tobacco Use [...] as of this encounter Progress Notes * Maki Salinas M.A. - 10/27/2017 2:48 PM EDTFrom: Kierra Kim To: Aj Langston MD Sent: 10/27/2017 1:56 PM EDT Subject: Rash like little lumps on hands Hello, I am a little concern about little lumps on my hands and was wondering if it should be seen. I havehad it for three weeks now and doesn't leave. It's not red but they are itchy and seen to be getting more. documented in this encounter Plan of Treatment Not on file documented as of this encounter Visit Diagnoses Not on filedocumented in this encounter Care Teams Certified Orthotic Fitter Relationship Specialty Start Date End Date Aj Langston MD PCP - General Internal Medicine 04/27/17 Mee Gordon MD PCP - General Internal Medicine 10/14/18 03/02/19 Orville Gupta MD PCP - General Internal Medicine 03/03/19 08/27/19 Jason Post MD [address] [place] [id number] PCP - General Internal Medicine 08/28/19 documented as of this encounter
== END 2024-08-29 13:20 | disposition home or self-care (01) ==
PROVIDERS: PCP Physician Assistant; Visit Provider Physician Assistant
DX: Z13.9 Encounter for screening, unspecified (principal); J02.0 Streptococcal pharyngitis

== ENCOUNTER → 2024-08-29 12:16 | Outpatient (BNVA) | payer OTHER, SELFPAY | PROVIDERS: PCP Physician Assistant; Visit Provider Physician Assistant | DX: J02.0 Streptococcal pharyngitis (principal) | CPT/HCPCS: 87880 ==

== ENCOUNTER 2024-11-13 09:47 | Outpatient (REF) | payer OTHER, SELFPAY ==
--- NOTE | ~2024-11-13 | XR_ITS ---
EXAMINATION: XR THORACIC SPINE CLINICAL INFORMATION: M54.6 - Pain in thoracic spine COMPARISON: None available. TECHNIQUE: 3 views of the thoracic spine were obtained. FINDINGS: There is a mild right convex scoliosis, apex at T8, with estimated Perry angle of 13 degrees. There is a normal thoracic kyphosis. There is no compression deformity, fracture, or suspicious bone lesion. There is normal alignment without subluxation. Disc spaces appear preserved. Facets appear normally aligned. The imaged soft tissues, mediastinal structures and lungs appear normal. XR/XR thoracic spine 2V IMPRESSION: 1. Mild right convex scoliosis. Otherwise normal thoracic spine. Electronically signed by: Mark Centeno MD 11/13/2024 10:55 AM EDT
--- NOTE | ~2024-11-13 | XR_ITS ---
EXAMINATION: XR LUMBOSACRAL SPINE CLINICAL INFORMATION: M54.50 - Low back pain, unspecified COMPARISON: None available. TECHNIQUE: 6 views of the lumbar spine, inclusive of bilateral oblique views, were obtained. FINDINGS: There is a mild levoconvex scoliosis, apex at L3. There is a normal lordosis. There is no significant subluxation. No fracture, compression deformity, or suspicious bone lesion. Disc spaces appear preserved. Facets appear normally aligned without significant degenerative arthrosis. There are no pars defects on the oblique projections. The sacrum and SI joints appear normal. There is no soft tissue abnormality. XR/XR lumbar spine 4V min IMPRESSION: 1. Mild levoconvex scoliosis. Otherwise normal lumbar spine. Electronically signed by: Mark Centeno MD 11/13/2024 10:57 AM EDT
--- OUTSIDE RECORDS SUMMARY | 2024-11-13 10:57 | XMS_ITS | Clinical Summary ---
Author Organization [facility] Address [address] [facility] [address] [place] [address] Care Team Providers Care Machine Tool Mechanic Name Role Phone Unavailable Primary Care Provider Unavailabl e Immunizations Immunization Administration Dates Next Due Influenza, seasonal, injectable, [...] to complete this topic Insurance , [address] [place] [id number]
--- OUTSIDE RECORDS SUMMARY | 2024-11-13 10:57 | XMS_ITS | Clinical Summary ---
Author Organization [facility] Address [address] [place] [address] Care Team Providers Care Rag Grader Name Role Phone Jason Post MD Primary [...] RESULTING AGENCY - 02/17/2024 1:30 PM EDT [id number] THINPREP PAP, IMAGED: NEGATIVE FOR SQUAMOUS INTRAEPITHELIAL [...] Recently Relevant to Health Maintenance Care Teams Rag Grader Relationship Specialty Start Date End Date Jason Post MD PCP - General Internal Medicine 08/28/19
== END 2024-11-13 09:48 | disposition home or self-care (01) ==
LOC: HO.XRAY 09:47
PROVIDERS: PCP Physician Assistant; Visit Provider Physician Assistant
DX: M54.50 Low back pain, unspecified (principal); M54.6 Pain in thoracic spine
CPT/HCPCS: 72070; 72110; 96127

== ENCOUNTER 2024-11-13 09:47 | Outpatient (AMB) | payer OTHER, SELFPAY ==
[2024-11-13 09:56] VITALS: BP 106/68; PULSE 78; TEMP 36.2; O2SAT 98; BMI 31.7
--- NOTE | 2024-11-13 09:56 | A.OFFPC_ITS ---
Vital Signs 11/13/24 09:56 Height 4 ft 11 in Weight 157 lb 2 oz BMI 31.7 BP 106/68 Blood Pressure Location Lt brachial Position Sitting Pulse 78 Pulse Source Pulse Oximeter Temp 97.1 F Temp Source Temporal Artery Scan Pulse Oximetry (%) 98 Oxygen Delivery Method Room Air Intake Visit Reasons: back pain Social Media Strategist Required: No Accompanied by: Self / Same As Patient Allergies amoxicillin Adverse Reaction (Intermediate, Verified 11/13/24 10:03) Vomiting Medication List - Last Reconciled 11/13/24 by Parviz Joshi PA-C triamcinolone acetonide 0.1% 1 appl topical DAILY 4 weeks Tobacco use date assessed: 11/13/24 Dental Screening Dental Screen Date: 11/13/24 Did you have a dental visit in the last 12 months?: Yes Did you have a dental problem in the last 6 months where you did not have access to dental care?: No Was dental information given to patient?: Patient has dentist HPI back pain HPI Details The patient is a 34-year-old female presenting with musculoskeletal back pain. She reports that her symptoms began about a month ago, initially localized to her upper back before moving to her lower back. The pain is localiz ed without radiation to the legs, and she attributes it to muscle spasms due to prolonged sitting at work. Alleviation of symptoms was noted with the use of a neck massager applied to her upper back, which she found beneficial. She's tried ibuprofen sparingly. The patient denies any recent injuries or lifting incidents. She is engaging in yoga and Pilates to address weight gain, but these activities can exacerbate her discomfort, especially when performing exercises that involve certain postures. [facility] Surgical History History of wisdom tooth extraction History of salpingectomy Family History Mother Diabetes Hypercholesteremia Father No problems noted. Maternal Grandmother Stroke Sister Leukemia Other Mental health disorder Substance use disorder Social History Housing: House Alcohol intake: current Alcohol intake frequency: holidays/special occasions only Alcohol type: beer Patient Tobacco Use Status: Never used Tobacco e-Cigarette/Vaping Use: Never Used Second Hand Smoke Exposure: No Substance Use Type: Marijuana service: No Current occupational status: employed Current occupation: [employer] Current occupational exposures/hazards: No Cognitive needs: No Hearing needs: No Vision needs: Yes (contacts/ glasses) Questionnaire PHQ-9 Over the last 2 weeks, how often have you been bothered by any of the following problems? 1. Little interest or pleasure in doing things: not at all 2. Feeling down, depressed, or hopeless: not at all 3. Trouble falling or staying asleep, or sleeping too much: not at all 4. Feeling tired or having little energy: not at all 5. Poor appetite or overeating: not at all 6. Feeling bad about yourself - or that you are a failure or have let yourself or your family down: not at all 7. Trouble concentrating on things, such as reading the newspaper or watching television: not at all 8. Moving or speaking so slowly that other people could have noticed. Or the opposite - being so fidgety or restless that you have been moving around a lot more than usual: not at all 9. Thoughts that you would be better off or of hurting yourself in some way: not at all Total score: 0 Depression Screening Interpretation: Negative Depression Screening Done: Yes 14674 - PHQ-9 Billing: Yes Source: Developed by Drs. Abe Loya, Manju Lagunas, Onur Santos and colleagues, with an educational blake from [employer]. Thrive Questionnaire Date Thrive assessed: 11/13/24 I am a: Patient What is your living situation today?: I have a steady place to live Within the past 12 months, did the food you bought not last and you didn't have the money to get more?: Never true Within the past 12 months, did you worry whether your food would run out before you got money to buy more?: Never true Do you have trouble paying for medicines?: No Do you have trouble getting transportation to medical appointments?: No Do you have trouble paying your heating and electricity bill?: No Do you have trouble taking care of your child, family member or friend?: No Do you have trouble with day-to-day activities such as bathing, preparing meals, shopping, managing finances, etc.?: No Are you currently unemployed and looking for a job?: No Are you interested in more education?: No Please select the resources that you would like help with: None Currently or been in a relationship where the following occur: No concerns reported THRIVE Score: 0 AUDIT C Alcohol Use Questionnaire (AUDIT-C) 1. How often do you have a drink containing alcohol?: Never 3. How often do you have six or more drinks on one occasion?: Never Total Score: 0 CISCO-7 AMB Questionnaire CISCO-7 Date CISCO - 7 assessed: 11/13/24 Feeling nervous, anxious, or on edge: 0 = Not at all Not being able to stop or control worryin = Not at all Worrying too much about different things: 0 = Not at all Trouble relaxin = Not at all Being so restless that it is hard to sit still: 0 = Not at all Becoming easily annoyed or irritable: 0 = Not at all Feeling afraid as if something awful might happen: 0 = Not at all Total CISCO-7 score (0-4 normal; 5-9 mild; 10-14 moderate; 15-21 severe): 0 Source: Developed by Drs. Abe Loya, Manju Lagunas, Onur Santos and colleagues, with an educational blake from [employer]. CISCO-7 Assessment Billing CISCO-7 Assessment Tool: CISCO-7 Assessment 71353 Review of Systems Const Denies headache(s) Eyes Denies loss of vision ENT Denies vertigo, Denies dizziness, Denies headache(s) and Denies sore throat Card Denies chest pain, Denies leg edema and Denies lightheadedness Resp Denies cough, Denies hemoptysis and Denies wheezing GI Denies abdominal pain, Denies melena, Denies constipation, Denies diarrhea and Denies vomiting Denies urinary frequency, Denies dysuria and Denies urinary urgency Musc Details: + thoracic spine pain Reports back pain, Denies arthralgias, Denies joint swelling, Denies numbness and Denies tingling Neuro Denies Abnormal speech present, Denies behavioral changes, Denies vertigo, Denies dizziness, Denies headache(s), Denies loss of vision, Denies memory loss, Denies numbness and Denies tingling Psych Denies anxiety, Denies behavioral changes, Denies depression, Denies memory loss and Denies panic attacks Good/Lymph Denies easy bleeding and Denies easy bruising Aller/Immun Denies wheezing Physical exam (Primary Care) Vital Signs: Last Vital Signs Temp 97.1 F 11/13/24 09:56 Pulse 78 11/13/24 09:56 BP 106/68 11/13/24 09:56 Pulse Ox 98 11/13/24 09:56 Oxygen Delivery Method Room Air 11/13/24 09:56 BMI result Body Mass Index 31.7 Tobacco/Smoking Status: Tobacco use Status Tobacco use date assessed 11/13/24 11/13/24 10:02 Patient Tobacco Use Status Never used Tobacco 11/13/24 09:57 e-Cigarette/Vaping Use Never Used 11/13/24 09:57 PHQ-9: PHQ-9 Score PHQ-9: Total score 0 11/13/24 10:02 Depression Screening Interpretation: Negative Thrive Assessment: Date of Thrive Assessment Date Thrive assessed 11/13/24 11/13/24 10:02 Currently or been in a relationship where the following occur: No concerns reported Const General: healthy appearing, no acute distress, alert and awake Nutritional Appearance: well nourished Orientation/consciousness: oriented to person, oriented to place and oriented to time HENMT Ears: TM's normal bilaterally General nose exam: Normal nasal mucous membranes and turbinates present Eyes Conjunctivae: conjunctivae normal Sclerae: sclerae normal Pupils: Equal, round and reactive pupils present Neck Neck: Yes no lymphadenopathy and Yes no JVD Thyroid: Thyroid normal Carotids: no bruits Resp Effort & Inspection: normal respiratory effort and not tachypneic Auscultation: no crackles, no rales, no rhonchi and no wheezes Cardio Rate: regular rate Rhythm: regular rhythm Heart sounds: no murmurs and normal S1 and S2 GI Palpation (GI): Soft to palpation, nontender, no hepatomegaly and no splenomegaly Auscultation: normal bowel sounds Skin General skin exam: no rashes or lesions noted and dry skin Neuro General: oriented to person, oriented to place and oriented to time Cranial nerves: Yes Equal, round and reactive pupils present Speech: No Abnormal speech present Gait exam (Neuro): Normal gait present Motor exam (neuro): no tremor noted Extrem Right upper extremity: full ROM Left upper extremity: full ROM Right lower extremity: full ROM; no edema Left lower extremity: full ROM; no edema Psych Mental Status: mental status grossly normal Speech and movement: Normal speech and movement present Affect: normal affect Attitude: cooperative Thought process: Normal thought process present Coding Level of Care Code Est Pt Level 3 (80676) Diagnoses Lumbar spine pain M54.50 Thoracic spine pain M54.6 Additional Codes CISCO-7 Assessment Billing - CISCO-7 Assessment Tool: CISCO-7 Assessment 02298 ([id number]) PHQ-9 - 89547 - PHQ-9 Billing: Yes ([id number]) Assessment & Plan Assessment & Plan (1) Lumbar spine pain: Code(s): M54.50 - Low back pain, unspecified Category: Medical Plan: I discussed using a standing desk and using physical therapy to address muscular back pain. Muscle relaxants were suggested for intermittent use, with a caution regarding adverse effects. Referral for physical therapy was made, and ibuprofen recommended as needed. Scheduled X-rays to rule out structural issues. (2) Thoracic spine pain: Code(s): M54.6 - Pain in thoracic spine Category: Medical Plan: As above Orders: Orders XR lumbar spine 4V min Today M54.50 - Low back pain, unspecified TSH reflex Free T4 Today R00.2 - Palpitations PT Evaluation and Treatment Today M54.6 - Pain in thoracic spine XR thoracic spine 2V Today M54.6 - Pain in thoracic spine Complete Blood Count no Diff Today Z13.1 - Encounter for screening for diabetes mellitus Comprehensive [place]. Panel Fast Today Z13.1 - Encounter for screening for diabetes mellitus Medications: New baclofen 10 mg PO BID 7 days PRN 14 tabs 0RF muscle spasm M54.6 - Pain in t horacic spine
--- OUTSIDE RECORDS SUMMARY | 2024-11-13 10:09 | XMS_ITS | Encounter Summary ---
Author Organization [facility] Address [address] [place] [address] Care Team Providers Care High [employer] Library Media Specialist Name Role Phone Aj Langston MD Primary Care Provider Un available Mee Gordon MD Primary Care Provider Orville Sears MD Primary Care Provider Unavail able Jason Post MD Primary Care Provider + [phone] Encounter Details Date Type Department Care Team Description 09/23/2018 Orders Only Medical Records [address] [place] [address] Lokesh Rubio MD Social History Tobacco Use Types Packs/Day [...] on file documented as of this encounter Procedures Procedure Name Priority Date/Time Associated Diagnosis Comments OUTSIDE LAB Routine 09/22/2018 documented in this encounter Results * OUTSIDE LAB (09/22/2018) Lokesh Rubio MD LAB documented in this encounter Visit Diagnoses Not on filedocumented in this encounter Care Teams High [employer] Library Media Specialist Relationship Specialty Start Date End Date Aj Langston MD PCP - General Internal Medicine 04/27/17 Mee Gordon MD PCP - General Internal Medicine 10/14/18 03/02/19 Orville Gupta MD PCP - General Internal Medicine 03/03/19 08/27/19 Jason Post MD [address] [place] [id number] PCP - General Internal Medicine 08/28/19 documented as of this encounter
--- OUTSIDE RECORDS SUMMARY | 2024-11-13 10:09 | XMS_ITS | Encounter Summary ---
Author Organization [facility] Address [address] [place] [address] Care Team Providers Care Extrusion Utility Worker Name Role Phone Aj Langston MD Primary Care Provider Un available Mee Gordon MD Primary Care Provider Orville eSars MD Primary Care Provider Unavail able Jason Post MD Primary Care Provider + [phone] Encounter Details Date Type Department Care Team Description 02/22/2018 Pt. Non Urgent Medic al Question Adult Medicine [address] [address] Aj Langston MD Social History Tobacco Use [...] on filedocumented in this encounter Care Teams Extrusion Utility Worker Relationship Specialty Start Date End Date Aj Langston MD PCP - General Internal Medicine 04/27/17 Mee Gordon MD PCP - General Internal Medicine 10/14/18 03/02/19 Orville Gupta MD PCP - General Internal Medicine 03/03/19 08/27/19 Jason Post MD [address] [place] [id number] PCP - General Internal Medicine 08/28/19 documented as of this encounter
--- OUTSIDE RECORDS SUMMARY | 2024-11-13 10:09 | XMS_ITS | Encounter Summary ---
Author Organization [facility] Address [address] [place] [address] Care Team Providers Care Sports Equipment Repairer Name Role Phone Orville Gupta MD Primary Care Provider Unavail Jason Lamar MD Primary Care Provider + [phone] Encounter Details Date Type Department Care Team Description 03/21/2019 Orders Only Medical Records [address] [place] [address] Argentina Banuelos, [facility] [address] [place] [address] Social History Tobacco Use Types Packs/Day Years [...] Name Priority Date/Time Associated Diagnosis Comments OUTSIDE PATHOLOGY Routine 03/11/2019 documented in this encounter Results * OUTSIDE PATHOLOGY (03/11/2019) Argentina Banuelos CNM OUTSIDE LAB documented in this encounter Visit Diagnoses Not on filedocumented in this encounter Care Teams Sports Equipment Repairer Relationship Specialty Start Date End Date Orville Gupta MD PCP - General Internal Medicine 03/03/19 08/27/19 Jason Post MD [address] [place] [id number] PCP - General Internal Medicine 08/28/19 documented as of this encounter
--- OUTSIDE RECORDS SUMMARY | 2024-11-13 10:09 | XMS_ITS | Clinical Summary ---
Author Organization [facility] Address [address] [place] [address] Care Team Providers Care Transport Manager Name Role Phone Jason Post MD Primary [...] 2011 COVID-19 Vaccine (2023-2 5 season) 2024 Depression Screening 05/23/2024 HIV Screening 05/23/2024 Hepatitis C Screening 05/23/2024 Social Influencers of Health Screening 05/23/2024 Influenza Vaccine (Season Ended) 2025 04/29/2017 Cervical Cancer Screening: P ap Smear 02/09/2027 [...] age to complete this topic Meningococcal B Vaccine Aged Out No l onger eligible based on patient's age to complete [...] RESULTING AGENCY - 02/17/2024 1:30 PM EDT [id number] THINPREP PAP, IMAGED: NEGATIVE FOR SQUAMOUS INTRAEPITHELIAL [...] Recently Relevant to Health Maintenance Care Teams Transport Manager Relationship Specialty Start Date End Date Jason Post MD PCP - General Internal Medicine 08/28/19
--- OUTSIDE RECORDS SUMMARY | 2024-11-13 10:09 | XMS_ITS | Encounter Summary ---
Author Organization [facility] Address [address] [place] [address] Care Team Providers Care Border Guard Name Role Phone Jason Post MD Primary Care Provider + [phone] Encounter Details Date Type Department Care Team Description 02/28/2021 Pt. Non Urgent Medical Question OBGYN - [address] [facility] [address] [place] [address] Deborah Mendosa, [facility] [address] [place] [address] Social History Tobacco Use Types Packs/Day Years [...] encounter Miscellaneous Notes * Telephone Encounter - Emmy Gutiérrez R.N. - 02/28/2021 2:49 PM EDTFrom: Kierra Wang To: Deborah Mendosa CNM Sent: 02/28/2021 2:45 PM EDT Subject: Information Hi, I want to see if I can get my tubes tied. I would like information. I know we had spoken a little about it before when I was but I think now I am ready and would like to have the talk. Thank you for your time, Kierra Wang documented in this encounter Plan of Treatment Not on file documented as of this encounter Visit Diagnoses Not on filedocumented in this encounter Care Teams Border Guard Relationship Specialty Start Date End Date Jason Post MD [address] [place] [id number] PCP - General Internal Medicine 08/28/19 documented as of this encounter
--- OUTSIDE RECORDS SUMMARY | 2024-11-13 10:09 | XMS_ITS | Encounter Summary ---
Author Organization [facility] Address [address] [place] [address] Care Team Providers Care Nutrition Services Worker Name Role Phone Mee Gordon MD Primary Care Provider Aj Constantino MD Primary Care Provider Un available Mee Gordon MD Primary Care Provider Orville Sears MD Primary Care Provider [facility] Jason Post MD Primary Care Provider + [phone] Encounter Details Date Type Department Care Team Description 01/15/2017 Transfer Records Medical Records [address] [place] [address] Abstract, Provider Social History Tobacco Use Types [...] on filedocumented in this encounter Care Teams Nutrition Services Worker Relationship Specialty Start Date End Date Mee Gordon MD PCP - General Internal Medicine 09/24/16 04/26/17 Aj Langston MD PCP - General Internal Medicine 04/27/17 Mee Gordon MD PCP - General Internal Medicine 10/14/18 03/02/19 Orville Gupta MD PCP - General Internal Medicine 03/03/19 08/27/19 Jason Post MD [address] [place] [id number] PCP - General Internal Medicine 08/28/19 documented as of this encounter
--- OUTSIDE RECORDS SUMMARY | 2024-11-13 10:09 | XMS_ITS | Encounter Summary ---
Author Organization [facility] Address [address] [place] [address] Care Team Providers Care Aoc Plans Intelligence Officer Name Role Phone Mee Gordon MD Primary Care Provider Aj Constantino MD Primary Care Provider Un available Mee Gordon MD Primary Care Provider Orville Sears MD Primary Care Provider [facility] able Jason Post MD Primary Care Provider [phone] Reason for Visit * Reason Comments E-prescribe Rx Request Encounter Details Date Type Department Care Team Description 04/26/2017 Refill [facility] - [place] [address] [place] [address] Emily Lujan CN [address] [place] [address] E-prescribe Rx Request Social History [...] 9:27 AM EST This pt is a Leslie pt documented in this encounter Plan of Treatment Not on file documented as of this encounter Visit Diagnoses Not on filedocumented in this encounter Care Teams Aoc Plans Intelligence Officer Relationship Specialty Start Date End Date Mee Gordon MD PCP - General Internal Medicine 09/24/16 04/26/17 Aj Langston MD PCP - General Internal Medicine 04/27/17 Mee Gordon MD PCP - General Internal Medicine 10/14/18 03/02/19 Orville Gupta MD PCP - General Internal Medicine 03/03/19 08/27/19 Jason Post MD [address] [place] [id number] PCP - General Internal Medicine 08/28/19 documented as of this encounter
--- OUTSIDE RECORDS SUMMARY | 2024-11-13 10:09 | XMS_ITS | Clinical Summary ---
Author Organization [facility] Address [address] [place] [address] Care Team Providers Care Lay Brother Name Role Phone Jason Post MD Primary Care Provider + [phone] Allergies No known active allergies Medications Medication Sig Dispensed Refills Start Date End Date Status clobetasol (TEMOVATE) 0.05 % creamIndications:Ecze ma, unspecified type Apply sparingly to eczema patches 2x daily as needed 45 g 3 10/14/2018 Active Etonogestrel (NEXPLANON) 68 MG ImplantIndications:In sertion of implantable subdermal contraceptive,Pregnan cy examination or test, unconfirmed Inject 68 mg into the skin Once. 1 Each 0 05/19/2019 Active naproxen (NAPROSYN) 500 MG tablet Take 1 Tab by mouth 2 times daily (with meals) for 30 days. 60 Tab 1 03/29/2020 Active azithromycin (ZITHROMAX) 250 MG tablet Take 2 tabs oral daily for one day, then take 1 day oral daily for 4 days 6 Tab 0 09/13/2020 Active predniSONE (DELTASONE) 10 MG tablet Take 5 tab oral once daily for one day then take 4 tab oral once daily for one day then take 3 tab oral once daily for one day then take 2 tab oral once daily for one day then take 1 tab oral once daily for one day 15 Tab 0 09/13/2020 Active Active Problems Problem Noted Date Chronic back pain 10/07/2016 Overview: Pt states her pcp tyrese did an xray after she c/o lower back pain since she was a child and it was found 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 No further management. Pt aware she can use heating packs on area or take tylenol. Records reviewed 10-15-2015 Impression: lubar spine 4 views Transitional anatomy. 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 The lamina of L5 appear congenitally dysplastic with the left lamina foreshortened. Otherwise unremarkable lumbar spine radiographs Anesthesia consult: 02-01-17 at 1pm. I faxed over x-rays for anesthesia, confirmed received by sheryl 02-01-17 records received from anesthesia consult by dr nixon - impression patient should do well with an epidural or spinal for delivery Pt rx'd flexeril in the past for neck pain. Pt currently not taking. History of hemorrhage 017 Overview: Cytotec only , neg transfusion Resolved Problems Problem Noted Date Resolved Date Elevated glucose tolerance test 02/03/2019 04/21/2019 Overview: One hr gtt 145, 3 hr gtt_-NORMAL Supervision of other normal , antepartu m 08/29/2018 04/21/2019 Overview: 1. [facility] site: [place] [address] 2. Delivery site: [facility] 3. Dating criteria: First trimester ultrasound only 3. Blood type: Lab Results Component Value Date BLDTYPE A POSITIVE 08/29/2018 4. Genetic screening: Date: Result: First trimester screen wnl, AFP____ 5. GBS: Date: 6. FOB name: Amadeo Wang 7. Plans A. Epidural or other pain management - B. Labor support identified - C. Tdap - Date: 02/02/2019 D. Breast or Bottle feed: Breast E. Baby's name - F. Circumcision - Pedi PPCM Family history of diabetes mellitus 08/29/2018 04/21/2019 Overview: Pt has a strong family hx of diabetes- normal early glucola, will repeat at 24- 28 weeks 02/02/2019 glucose screen___ Asthma 04/29/2017 08/29/2018 Overview: In childhood Missed 10/08/2016 04/16/2017 Overview: Received records from [facility] - missed . <10 weeks GA Ultrasound 04-22-16 interuterine gestational sac with no pole , no yolk sac 05-13-2016 ultrasound no pole Patient given pills to expel products of conception History of loss in prior , currently 10/07/2016 10/08/2016 Overview: Pt very emotional about a recent in 2015 where she had serial ultrasounds for what she states was a where the placenta and sac were growing but no fetus. Pt then had to take pills to terminate at home. Pt believes she was 3 months . I faxed for medical records from [facility]. 10-07-16, awaiting records. Encounter for supervision of normal 04/16/2017 Overview: 1. [facility] site: [place] [address] 2. Delivery site: [facility] 3. Dating criteria: DUYEN 03-27-17 confirmed by ultrasound at 5w 6d on 07-31-16 3. Blood type: A+ 4. Genetic screening: Date: NEGATIVE Result: 03/03/2017 5. GBS: NEGATIVE Date: 03/03/2017 6. FOB name: 7. Plans A. Epidural or other pain management - undecided B. Labor support identified - C. Tdap - Date: 02/10/2017 D. Breast or Bottle feed: breast E. Baby's name - Raulito RogelioTeresa Circumcision - yes Pedi: HPA PPCM Depo prior to hosp discharge Asthma 11/11/2018 Immunizations Name Administration Dates Next Due Influenza Flu (PT Reported) 03/17/2020 Influenza Vaccine-quadrivalent 4 Years Plus 07/2016 Tdap 02/02/2019,02/10/2017 Family History Medical History Relation Name Comments ovarian cancer Aunt mat Asthma Brother x2 Diabetes Maternal Grandfather hyperch olestemia Diabetes Maternal Grandmother hyperch olestemia Diabetes Mother Asthma Diabetes Paternal Grandfather hyperch olestemia Diabetes Paternal Grandmother hyperch olestemia CA Breast Negative Hx CA Colon Negative Hx Relation Name Status Comments Aunt mat [...] Assigned at Date Recorded Not on file Last Filed Vital Signs Vital Sign Reading Time Taken Comments Blood Pressure 111/71 02/10/2024 2:41 PM EDT Pulse 70 02/10/2024 2:41 PM EDT Temperature 37 ??C (98.6 ??F) 09/13/2020 8:46 AM EDT Respiratory Rate 14 02/10/2024 2:41 PM EDT Oxygen Saturation 99% 09/13/2020 8:46 AM EDT Inhaled Oxygen Concentration - - Weight 68 kg (150 lb) 02/10/2024 2:41 PM EDT Height 149.9 cm (4' 11 ) 09/13/2020 8:46 AM EDT Body Mass Index 30.3 09/13/2020 8:46 AM EDT Plan of Treatment Health Maintenance Due Date Last Done Comments Covid-19 Vaccine (#1) 1992 PNEUMOCOCCAL VACCINE FOR HIG H RISK PATIENTS (#1) 2011 BMI CHECK/ADVISE 06/28/2024 02/10/2024, , 03/29/2020, Additional history exists DEPRESSION SCREENING/FOLLOWUP 06/28/2024 02/19/2020 (Completed) SOCIAL NEEDS SCREENING 06/28/2024 02/19/2020 (Comple bernabe) CHOLESTEROL SCREENING 01/23/2025 01/24/2020, 017 BASELINE HEALTH EXAM 18-39 02/18/202502/18, 05/10/2017, 04/29/2017 INFLUENZA (Season Ended) 2025 023, 03/17/2020, 04/29/2017 CERVICAL CANCER SCREENING 02/09/20272023, 02/20/2020, 01/24/2020, Additional history exists DTAP/TDAP/TD (3 - Td or Tdap) 02/02/2029 02/02/2019, 02/10/2017 Care Teams Lay Brother Relationship Specialty Start Date End Date Jason Post MD [address] [place] [address] [id number] PCP - General Internal Medicine 08/28/19
== END 2024-11-13 10:15 | disposition home or self-care (01) ==
LOC: HO.HMCH 09:48
PROVIDERS: PCP Physician Assistant; Visit Provider Physician Assistant
DX: M54.50 Low back pain, unspecified (principal); M54.6 Pain in thoracic spine

== ENCOUNTER → 2024-11-13 10:24 | Outpatient (BNV) | payer OTHER, SELFPAY | PROVIDERS: PCP Physician Assistant; Visit Provider Radiology Diagnostic Radiology | DX: M41.9 Scoliosis, unspecified (principal); M54.50 Low back pain, unspecified | CPT/HCPCS: 72070; 72110 ==

== ENCOUNTER 2024-12-06 07:50 | Outpatient (REF) | payer OTHER, SELFPAY ==
[2024-12-06 08:25] LABS: Hematocrit 41.4 % (37.0-47.0); Hemoglobin 14.2 g/dl (12.0-16.0); Mean Corpuscular HGB Conc 34.3 g/dl (31.0-35.0); Mean Corpuscular Hemoglobin 30.3 pg (27.0-33.0); Mean Corpuscular Volume 88.3 fL (80.0-98.0); Mean Platelet Volume 10.4 fL (9.4-12.3); Platelet Count 299 X10*3/uL (160-400); Red Blood Count 4.69 X10*6/uL (4.20-5.50); Red Cell Distribution Width 12.4 % (11.0-16.0); White Blood Count 7.6 X10*3/uL (4.8-10.8)
[2024-12-06 09:06] LABS: Alanine Aminotransferase 17 U/L (0-31); Albumin Level 4.5 g/dL (3.5-5.0); Alkaline Phosphatase 50 U/L (39-117); Anion Gap 10 (12-20); Aspartate Amino Transferase 22 U/L (5-31); Bilirubin Total 0.5 mg/dL (0.0-1.0); Blood Urea Nitrogen 8 mg/dL (9-16); Calcium 9.4 mg/dL (8.4-10.2); Carbon Dioxide 25 mmol/L (22-29); Chloride 107 mmol/L (96-108); Estimated Glomerular Filt Rate > 60; Glucose Fasting 96 mg/dL (60-99); Potassium 3.7 mmol/L (3.3-5.1); Sodium 138 mmol/L (135-145); Total Protein 7.2 g/dL (6.5-8.0)
== END 2024-12-06 07:51 | disposition home or self-care (01) ==
LOC: HO.LAB 07:50
PROVIDERS: PCP Physician Assistant; Visit Provider Physician Assistant
DX: Z13.1 Encounter for screening for diabetes mellitus (principal); R00.2 Palpitations
CPT/HCPCS: 36415; 80053; 84443; 85027

== ENCOUNTER 2024-12-19 14:37 | Outpatient (AMB) | payer OTHER, SELFPAY ==
[2024-12-19 15:01] VITALS: BP 110/60; PULSE 87; TEMP 36.2; O2SAT 97
--- NOTE | 2024-12-19 15:01 | A.OFFPC_ITS ---
Vital Signs 12/19/24 15:01 Height 4 ft 11 in BP 110/60 Blood Pressure Location Lt brachial Position Sitting Pulse 87 Pulse Source Pulse Oximeter Temp 97.1 F Temp Source Temporal Artery Scan Pulse Oximetry (%) 97 Oxygen Delivery Method Room Air Intake Visit Reasons: PE Peanut Roaster Required: No Accompanied by: Self / Same As Patient Allergies amoxicillin Adverse Reaction (Intermediate, Verified 12/19/24 15:09) Vomiting Medication List - Last Reconciled 12/19/24 by Parviz Joshi PA-C baclofen 10 mg PO BID PRN 7 days triamcinolone acetonide 0.1% 1 appl topical DAILY 4 weeks Tobacco use date assessed: 11/13/24 Dental Screening Dental Screen Date: 11/13/24 HPI PE HPI Details Patient is a 34-year-old female here today for a annual physical.? Patient does not have any past medical history does not take any chronic medications. Concerns-- > The patient also experiences constipation, which she manages with fiber supplements. She notes that discontinuation of the supplements leads to constipation. Blurry vision has been noted, occurring sporadically, particularly when working on the computer. The episodes have increased in frequency, with the last occurrence being three times in one month. .. Eczema: Has small eczema flares that itch from time to time, she does have access to triamcinolone cream to use on localized areas. 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 does get a flu vac every year, UTD with tdap [facility] History History of wisdom tooth extraction History of salpingectomy Family History (Updated 12/19/24 @ 15:11 by Parviz Joshi PA-C) Mother Diabetes Hypercholesteremia HTN (hypertension) Father No problems noted. Maternal Grandmother Stroke Sister Leukemia Other Mental health disorder Substance use disorder Social History Housing: House Alcohol intake: current Alcohol intake frequency: holidays/special occasions only Alcohol type: beer Patient Tobacco Use Status: Never used Tobacco e-Cigarette/Vaping Use: Never Used Second Hand Smoke Exposure: No Substance Use Type: Marijuana service: No Current occupational status: employed Current occupation: [employer] Current occupational exposures/hazards: No Cognitive needs: No Hearing needs: No Vision needs: Yes (contacts/ glasses) Questionnaire Thrive Questionnaire Date Thrive assessed: 11/06/24 I am a: Patient What is your living situation today?: I have a steady place to live Within the past 12 months, did the food you bought not last and you didn't have the money to get more?: Never true Within the past 12 months, did you worry whether your food would run out before you got money to buy more?: Never true Do you have trouble paying for medicines?: No Do you have trouble getting transportation to medical appointments?: No Do you have trouble paying your heating and electricity bill?: No Do you have trouble taking care of your child, family member or friend?: No Do you have trouble with day-to-day activities such as bathing, preparing meals, shopping, managing finances, etc.?: No Are you currently unemployed and looking for a job?: No Are you interested in more education?: No Please select the resources that you would like help with: None Currently or been in a relationship where the following occur: No concerns reported THRIVE Score: 0 CISCO-7 AMB Questionnaire CISCO-7 Date CISCO - 7 assessed: 11/13/24 Source: Developed by Drs. Abe Loya, Manju Lagunas, Onur Santos and colleagues, with an educational blake from [employer]. Review of Systems Const Denies body aches, Denies chills, Denies excessive sweating, Denies fatigue, Denies fever(s) and Denies headache(s) Eyes Denies blurry vision ENT Denies dysphagia, Denies vertigo, Denies dizziness, Denies headache(s), Denies hearing loss and Denies tinnitus Card Denies chest pain, Denies chest pain with activity, Denies syncope, Denies irregular heart rhythm and Denies dyspnea Resp Denies chest congestion, Denies cough, Denies hemoptysis, Denies dyspnea and Denies wheezing GI Denies abdominal pain, Denies melena, Denies hematochezia, Denies coffee ground emesis, Denies dysphagia, Denies diarrhea, Denies nausea and Denies vomiting Denies urinary frequency, Denies dysuria, Denies urinary hesitancy and Denies urinary urgency Musc Denies arthralgias, Denies limited range of motion, Denies muscle cramps and Denies muscle weakness Skin/Breast Denies rash and Denies skin ulcer Neuro Denies Abnormal speech present, Denies confusion, Denies vertigo, Denies dizziness, Denies syncope, Denies headache(s), Denies memory loss and Denies seizure-like activity Psych Denies anxiety, Denies confusion, Denies depression, Denies memory loss, Denies panic attacks and Denies paranoia Endo Denies excessive sweating, Denies fatigue, Denies flushing, Denies polydipsia and Denies polyuria Aller/Immun Denies wheezing Physical exam (Primary Care) Vital Signs: Last Vital Signs Temp 97.1 F 12/19/24 15:01 Pulse 87 12/19/24 15:01 BP 110/60 12/19/24 15:01 Pulse Ox 97 12/19/24 15:01 Oxygen Delivery Method Room Air 12/19/24 15:01 Tobacco/Smoking Status: Tobacco use Status Tobacco use date assessed 11/13/24 12/19/24 15:02 Patient Tobacco Use Status Never used Tobacco 12/19/24 15:02 e-Cigarette/Vaping Use Never Used 12/19/24 15:02 Thrive Assessment: Date of Thrive Assessment Date Thrive assessed 11/06/24 12/19/24 15:02 Currently or been in a relationship where the following occur: No concerns reported Const General: cooperative, comfortable, no acute distress, alert and awake; No confusion Orientation/consciousness: oriented to person, oriented to place, patient oriented x3 and No confusion HENMT Head: Yes normocephalic Ears: external ears normal and TM's normal bilaterally Face and sinus: No sinus tenderness Mouth: Normal oral and palatal mucosa present and tongue normal Teeth and gingiva: dentition normal and gingiva normal Throat: Yes posterior oropharynx normal, Yes tonsils normal and Yes uvula midline Eyes Conjunctivae: conjunctivae normal Sclerae: sclerae normal Pupils: Equal, round and reactive pupils present EOM: EOMs intact bilaterally Direct Ophthalmoscopy: No no photophobia Neck Neck: Yes no lymphadenopathy, No tender and Yes no JVD Thyroid: Thyroid normal Carotids: no bruits Chest Chest palpation & inspection: no tenderness Resp Effort & Inspection: normal respiratory effort, no audible wheezes, not labored and no stridor Auscultation: no crackles, no rales, no rhonchi and no wheezes Cardio Jugular venous distension: no JVD Rate: regular rate, not bradycardic and not tachycardic Rhythm: regular rhythm Bruits: no carotid bruits Peripheral pulses: Peripheral pulses 2+ throughout GI Inspection: Yes normal to inspection, No abdominal wall ecchymosis and No visible herniation Palpation (GI): Soft to palpation, nontender, no guarding, not rigid and No hepatosplenomegaly present Auscultation: normoactive bowel sounds General: Yes no CVA tenderness Back/Spine/Pelvis Back: no CVA tenderness and No back tenderness Cervical Spine: cervical ROM normal Thoracic/Lumbar Spine: thoracic and lumbar spine normal to inspection, straight leg raise negative bilaterally, No thoraco-lumbar ROM limited and No lumbar spinal tenderness Skin Lesions: no lesions Rashes: no rashes Wounds: no wounds Neuro General: oriented to person, oriented to place, patient oriented x3, CN's II-XI intact bilaterally and No confusion Cranial nerves: Yes Equal, round and reactive pupils present and Yes Normal accommodation reflex present Cognition (Neuro): normal cognition Speech: No Abnormal speech present Gait exam (Neuro): Normal gait present Motor exam (neuro): 5/5 motor strength present throughout Extrem Right upper extremity: full ROM; no cyanosis Left upper extremity: full ROM; no cyanosis Right lower extremity: no edema Left lower extremity: no edema Psych Appearance: grossly normal Mental Status: mental status grossly normal Affect: normal affect Attitude: cooperative Thought process: Normal thought process present Coding Level of Care Code Est Pt Prev Care 18-39y([id number]) Diagnoses Annual physical exam Z00.00 Screening for diabetes mellitus (DM) Z13.1 Other constipation K59.09 Constipation type: other constipation type Eye strain, bilateral H53.10 Intrinsic eczema L20.84 Eczema type: intrinsic Assessment & Plan Assessment & Plan (1) Annual physical exam: Code(s): Z00.00 - Encounter for general adult medical examination without abnormal findings Category: Medical Plan: As per HPI (2) Screening for diabetes mellitus (DM): Code(s): Z13.1 - Encounter for screening for diabetes mellitus Category: Medical Plan: As per HPI (3) Constipation: Code(s): K59.00 - Constipation, unspecified Category: Medical Qualifiers: Constipation type: other constipation type Qualified Code(s): K59.09 - Other constipation Plan: The patient manages constipation with fiber supplements and reports that discontinuation leads to constipation. It was advised to increase dietary fiber intake through fruits and vegetables. (4) Eye strain, bilateral: Code(s): H53.10 - Unspecified subjective visual disturbances Category: Medical Plan: The patient experiences episodes of blurry vision, particularly during computer use. It was suggested to consider blue light glasses and to consult with an eye doctor for further evaluation. (5) Eczema: Code(s): L30.9 - Dermatitis, unspecified Category: Medical Qualifiers: Eczema type: intrinsic Qualified Code(s): L20.84 - Intrinsic (allergic) eczema Plan: The patient manages eczema with topical creams and is cautious about applying creams on new tattoos to avoid irritation. No new interventions were discussed during this visit. Orders: Orders Complete Blood Count no Diff Today Z13.1 - Encounter for screening for diabetes mellitus Comprehensive [place]. Panel Fast Today Z13.1 - Encounter for screening for diabetes mellitus
--- OUTSIDE RECORDS SUMMARY | 2024-12-19 17:50 | XMS_ITS | Encounter Summary ---
Author Organization [facility] Address [address] [place] [address] Care Team Providers Care Radiology Special Procedure Tech Name Role Phone Mee Gordon MD Primary Care Provider Aj Constantino MD Primary Care Provider Un available Mee Gordon MD Primary Care Provider Orville Sears MD Primary Care Provider [facility] Jason Post MD Primary Care Provider [phone] Encounter Details Date Type Department Care Team Description 11/16/2016 SCAN Medical Records [address] [place] [address] Abstract, Provider Social History Tobacco Use Types [...] Name Priority Date/Time Associated Diagnosis Comments OUTSIDE ULTRASOUND Routine 11/12/2016 documented in this encounter Results * OUTSIDE ULTRASOUND (11/12/2016) Provider Abstract RADIOLOGY documented in this encounter Visit Diagnoses Not on filedocumented in this encounter Care Teams Radiology Special Procedure Tech Relationship Specialty Start Date End Date Mee Gordon MD PCP - General Internal Medicine 09/24/16 04/26/17 Aj Langston MD PCP - General Internal Medicine 04/27/17 Mee Gordon MD PCP - General Internal Medicine 10/14/18 03/02/19 Orville Gupta MD PCP - General Internal Medicine 03/03/19 08/27/19 Jason Post MD [address] [place] [id number] PCP - General Internal Medicine 08/28/19 documented as of this encounter
== END 2024-12-19 15:23 | disposition home or self-care (01) ==
LOC: HO.HMCH 14:38
PROVIDERS: PCP Physician Assistant; Visit Provider Physician Assistant
DX: Z00.00 Encounter for general adult medical examination without abnormal findings (principal); Z13.1 Encounter for screening for diabetes mellitus; K59.09 Other constipation; H53.10 Unspecified subjective visual disturbances; L20.84 Intrinsic (allergic) eczema

== ENCOUNTER → 2024-12-19 14:37 | Outpatient (BNVA) | payer OTHER, SELFPAY | PROVIDERS: PCP Physician Assistant; Visit Provider Physician Assistant | DX: Z13.89 Encounter for screening for other disorder (principal) ==

== ENCOUNTER 2025-04-11 08:47 | Outpatient (AMB) | payer OTHER, SELFPAY ==
--- NOTE | 2025-04-11 08:50 | A.OFFPC_ITS ---
Vital Signs 04/11/25 08:51 Height 4 ft 11 in Weight 154 lb 4 oz BMI 31.2 BP 120/70 Blood Pressure Location Lt brachial Position Sitting Pulse 83 Pulse Source Pulse Oximeter Temp 97.1 F Temp Source Temporal Artery Scan Pulse Oximetry (%) 98 Oxygen Delivery Method Room Air Intake Visit Reasons: Swollen Eye lid Allergies amoxicillin Adverse Reaction (Intermediate, Verified 04/11/25 08:53) Vomiting Tobacco use date assessed: 04/11/25 Dental Screening Dental Screen Date: 04/11/25 Did you have a dental visit in the last 12 months?: Yes Did you have a dental problem in the last 6 months where you did not have access to dental care?: No Was dental information given to patient?: Patient has dentist HPI Swollen Eye lid HPI Details The patient is a 34-year-old female presenting with eyelid swelling and asthma exacerbation. The eyelid swelling began the previous day, initially appearing pink and slightly swollen, but worsened significantly by the next morning. The patient suspects the condition may have been triggered by contact lens removal. The patient reports a history of asthma, which has been exacerbated since a COVID-19 infection approximately six weeks ago. She has been using her 's inhaler daily due to increased shortness of breath, particularly when climbing stairs. [facility] Surgical History History of wisdom tooth extraction History of salpingectomy Family History Mother Diabetes Hypercholesteremia HTN (hypertension) Father No problems noted. Maternal Grandmother Stroke Sister Leukemia Other Mental health disorder Substance use disorder Social History Housing: House Alcohol intake: current Alcohol intake frequency: holidays/special occasions only Alcohol type: beer Patient Tobacco Use Status: Never used Tobacco e-Cigarette/Vaping Use: Never Used Second Hand Smoke Exposure: No Substance Use Type: Marijuana service: No Current occupational status: employed Current occupation: [employer] Current occupational exposures/hazards: No Cognitive needs: No Hearing needs: No Vision needs: Yes (contacts/ glasses) Questionnaire PHQ-9 Over the last 2 weeks, how often have you been bothered by any of the following problems? 1. Little interest or pleasure in doing things: not at all 2. Feeling down, depressed, or hopeless: not at all 3. Trouble falling or staying asleep, or sleeping too much: not at all 4. Feeling tired or having little energy: not at all 5. Poor appetite or overeating: not at all 6. Feeling bad about yourself - or that you are a failure or have let yourself or your family down: not at all 7. Trouble concentrating on things, such as reading the newspaper or watching television: not at all 8. Moving or speaking so slowly that other people could have noticed. Or the opposite - being so fidgety or restless that you have been moving around a lot more than usual: not at all 9. Thoughts that you would be better off or of hurting yourself in some way: not at all Total score: 0 Depression Screening Interpretation: Negative Depression Screening Done: Yes Source: Developed by Drs. Abe Loya, Manju Lagunas, Onur Santos and colleagues, with an educational blake from [employer]. Thrive Questionnaire Date Thrive assessed: 11/06/24 I am a: Patient What is your living situation today?: I have a steady place to live Within the past 12 months, did the food you bought not last and you didn't have the money to get more?: Never true Within the past 12 months, did you worry whether your food would run out before you got money to buy more?: Never true Do you have trouble paying for medicines?: No Do you have trouble getting transportation to medical appointments?: No Do you have trouble paying your heating and electricity bill?: No Do you have trouble taking care of your child, family member or friend?: No Do you have trouble with day-to-day activities such as bathing, preparing meals, shopping, managing finances, etc.?: No Are you currently unemployed and looking for a job?: No Are you interested in more education?: No Please select the resources that you would like help with: None Currently or been in a relationship where the following occur: No concerns reported THRIVE Score: 0 AUDIT C Alcohol Use Questionnaire (AUDIT-C) 1. How often do you have a drink containing alcohol?: Never 3. How often do you have six or more drinks on one occasion?: Never Total Score: 0 CISCO-7 AMB Questionnaire CISCO-7 Date CISCO - 7 assessed: 11/13/24 Feeling nervous, anxious, or on edge: 0 = Not at all Not being able to stop or control worryin = Not at all Worrying too much about different things: 0 = Not at all Trouble relaxin = Not at all Being so restless that it is hard to sit still: 0 = Not at all Becoming easily annoyed or irritable: 0 = Not at all Feeling afraid as if something awful might happen: 0 = Not at all Total CISCO-7 score (0-4 normal; 5-9 mild; 10-14 moderate; 15-21 severe): 0 Source: Developed by Drs. Abe Loya, Manju Lagunas, Onur Santos and colleagues, with an educational blake from [employer]. Review of Systems Const Denies headache(s) Eyes Denies loss of vision ENT Denies vertigo, Denies dizziness, Denies headache(s) and Denies sore throat Card Denies chest pain, Denies leg edema, Denies lightheadedness and Reports dyspnea Resp Reports cough, Denies hemoptysis, Reports dyspnea and Denies wheezing GI Denies abdominal pain, Denies melena, Denies constipation, Denies diarrhea and Denies vomiting Denies urinary frequency, Denies dysuria and Denies urinary urgency Musc Denies arthralgias, Denies joint swelling, Denies numbness and Denies tingling Neuro Denies Abnormal speech present, Denies behavioral changes, Denies vertigo, Denies dizziness, Denies headache(s), Denies loss of vision, Denies memory loss, Denies numbness and Denies tingling Psych Denies anxiety, Denies behavioral changes, Denies depression, Denies memory loss and Denies panic attacks Good/Lymph Denies easy bleeding and Denies easy bruising Aller/Immun Denies wheezing Physical exam (Primary Care) Vital Signs: Last Vital Signs Temp 97.1 F 04/11/25 08:51 Pulse 83 04/11/25 08:51 BP 120/70 04/11/25 08:51 Pulse Ox 98 04/11/25 08:51 Oxygen Delivery Method Room Air 04/11/25 08:51 BMI result Body Mass Index 31.2 Tobacco/Smoking Status: Tobacco use Status Tobacco use date assessed 04/11/25 04/11/25 08:54 Patient Tobacco Use Status Never used Tobacco 04/11/25 08:54 e-Cigarette/Vaping Use Never Used 04/11/25 08:54 PHQ-9: PHQ-9 Score PHQ-9: Total score 0 04/11/25 08:54 Depression Screening Interpretation: Negative Thrive Assessment: Date of Thrive Assessment Date Thrive assessed 11/06/24 04/11/25 08:54 Currently or been in a relationship where the following occur: No concerns reported Const General: healthy appearing, no acute distress, alert and awake Nutritional Appearance: well nourished Orientation/consciousness: oriented to person, oriented to place and oriented to time HENMT Ears: TM's normal bilaterally General nose exam: Normal nasal mucous membranes and turbinates present Eyes Other: RIGHT UPPER EYE LID NOTED EDEMA AND SLIGHT ERYTHEMA Conjunctivae: conjunctivae normal Sclerae: sclerae normal Pupils: Equal, round and reactive pupils present Neck Neck: Yes no lymphadenopathy and Yes no JVD Thyroid: Thyroid normal Carotids: no bruits Resp Effort & Inspection: normal respiratory effort and not tachypneic Auscultation: no crackles, no rales, no rhonchi and no wheezes Cardio Rate: regular rate Rhythm: regular rhythm Heart sounds: no murmurs and normal S1 and S2 GI Palpation (GI): Soft to palpation, nontender, no hepatomegaly and no splenomegaly Auscultation: normal bowel sounds Skin General skin exam: no rashes or lesions noted and dry skin Neuro General: oriented to person, oriented to place and oriented to time Cranial nerves: Yes Equal, round and reactive pupils present Speech: No Abnormal speech present Gait exam (Neuro): Normal gait present Motor exam (neuro): no tremor noted Extrem Right upper extremity: full ROM Left upper extremity: full ROM Right lower extremity: full ROM; no edema Left lower extremity: full ROM; no edema Psych Mental Status: mental status grossly normal Speech and movement: Normal speech and movement present Affect: normal affect Attitude: cooperative Thought process: Normal thought process present Coding Level of Care Code Est Pt Level 3 (44518) Diagnoses Edema of right upper eyelid H02.841 Laterality: right Eyelid: upper Mild intermittent asthma with acute exacerbation J45.21 Asthma severity: mild Asthma persistence: intermittent Assessment & Plan Assessment & Plan (1) Eyelid edema: Code(s): H02.849 - Edema of unspecified eye, unspecified eyelid Category: Medical Qualifiers: Laterality: right Eyelid: upper Qualified Code(s): H02.841 - Edema of right upper eyelid Plan: A prednisone taper was prescribed to address inflammation in both the lungs and eyelid. Doxycycline was prescribed to treat a potential bacterial infection of the eyelid. The patient was advised to use warm compresses and lubricating eye drops to alleviate symptoms. (2) Acute asthma flare: Code(s): J45.901 - Unspecified asthma with (acute) exacerbation Category: Medical Qualifiers: Asthma severity: mild Asthma persistence: intermittent Qualified Code(s): J45.21 - Mild intermittent asthma with (acute) exacerbation Plan: An inhaler prescription was provided to manage asthma symptoms, and a chest X- ray was suggested to rule out any underlying pulmonary issues Orders: Orders XR chest 2V Today J45.901 - Unspecified asthma with (acute) exacerbation Medications: New prednisone Take 3 tablets x3 days, 2 tablets x3 days, 1 tablet x3 days 10 mg PO DIRECTED 18 tabs 0RF 9 days J45.901 - Unspecified asthma with (acute) exacerbation doxycycline monohydrate 100 mg PO BID 10 caps 0RF 5 days H02.841 - Edema of right upper eyelid albuterol sulfate 90 mcg/actuation (Ventolin HFA) 1 inh inhalation QID 8.5 grams 1RF 30 days J45.901 - Unspecified asthma with (acute) exacerbation
[2025-04-11 08:51] VITALS: BP 120/70; PULSE 83; TEMP 36.2; O2SAT 98; BMI 31.2
--- OUTSIDE RECORDS SUMMARY | 2025-04-11 09:22 | XMS_ITS | Clinical Summary ---
[facility] Organization [facility] Address [address] [place] [address] Care Team Providers Care Canvas Shrinker Name Role Phone Jason Post MD Primary [...] of 3 - 19+ 3-dose series) 2011 HPV Vaccines (1 - 3-dose SCD M series) 2019 HIV Screening 05/23/2024 Hepatitis C Screening 05/23/2024 Social Influencers of Health Screening 05/23/2024 Depression Screening 06/28/2024 COVID-19 Vaccine (1 - 2023-2 5 season) 2025 Influenza Vaccine (#1) 2025 04/29/2017 Cervical Cancer Screening: P ap Smear 02/09/2027 02/10/2024, 02/20/2020, 01/24/2020 DTaP,Tdap,and Td Vaccines (3 - Td or Tdap) 02/02/2029 02/02/2019, 02/10/2017 RSV Immunization Adult Patients (1 - 1-dose 75+ series) 2067 HIB Vaccines Aged Out No longer eligi [...] 5 Years) and At-Risk Patients (6 to 49 Years) Aged Out No longer eligible b [...] RESULTING AGENCY - 02/17/2024 1:30 PM EDT [id number] THINPREP PAP, IMAGED: NEGATIVE FOR SQUAMOUS INTRAEPITHELIAL LESION AND MALIGNANCY NOTE: ADEQUACY DEEMED SATISFACTORY AFTER REPROCESSING WITH ACID WASH PROCEDURE TO REMOVE EXCESS BLOOD. MARIELA EDMONDS(ASCP) (CASE ELECTRONICALLY SIGNED 02 17 2024) RESULT OF APTIMA HIGH RISK HPV ASSAY: HIGH RISK HPV: NEGATIVE (SEROTYPES 16,18,31,33,35,39,45,51,52,56,58,59,66,68) COMPLETED ON 2024-02-14 ADEQUACY: SATISFACTORY ENDOCERVICAL/TRANSFORMATION ZONE COMPONENT PRESENT. SOURCE: THINPREP PAP HPV ANY DX: REFLEX 16 AND 18, CERVICAL, IMAGED CLINICAL INFORMATION: HPV ANY DIAGNOSIS. HORMONES, PAP HX NEGATIVE, [Z12.4] Colette Enriquez DO LAB CYTOLOGY ORDERABLES Final Result HISTORICAL TESTING LAB RESULTING AGENCY from Last 3 Months or Most Recently Relevant to Health Maintenance Care Teams Canvas Shrinker Relationship Specialty Start Date End Date Jason Post MD PCP - General Internal Medicine 08/28/19
== END 2025-04-11 09:16 | disposition home or self-care (01) ==
LOC: HO.HMCH 08:48
PROVIDERS: PCP Physician Assistant; Visit Provider Physician Assistant
DX: H02.841 Edema of right upper eyelid (principal); J45.21 Mild intermittent asthma with (acute) exacerbation

== ENCOUNTER 2025-06-18 14:25 | Outpatient (AMB) | payer OTHER, SELFPAY ==
--- NOTE | 2025-06-18 14:47 | MHC.PC.OV ---
Vital Signs 06/18/25 14:49 Height 4 ft 11 in Weight 153 lb 6 oz BMI 31.0 BP 110/62 Blood Pressure Location Lt brachial Position Sitting Respiration 12 Pulse 88 Temp 98.7 F Temp Source Tympanic Intake Visit Reasons: cold and chills congestion Allergies amoxicillin Adverse Reaction (Intermediate, Verified 06/18/25 14:47) Vomiting Tobacco use date assessed: 04/11/25 Dental Screening Dental Screen Date: 04/11/25 HPI HPI Comments History of Present Illness Details The patient is a 35 year old female presenting with a one-day history of chills, back pain, and body aches. A cough began today and is productive of a small amount of yellow sputum. She also reports nasal congestion, nasal pain, and decreased appetite. She denies fever. She has a history of asthma that is exacerbated when she is sick, for which she uses albuterol as needed. She also carries a history of allergies. She is not currently wheezing or experiencing dyspnea. For her current symptoms, she tried Flonase nasal spray, but it caused a burning sensation. She has also taken [id number] ibuprofen. [facility] Surgical History History of wisdom tooth extraction History of salpingectomy Family History Mother Diabetes Hypercholesteremia HTN (hypertension) Father No problems noted. Maternal Grandmother Stroke Sister Leukemia Other Mental health disorder Substance use disorder Social History Housing: House Alcohol intake: current Alcohol intake frequency: holidays/special occasions only Alcohol type: beer Patient Tobacco Use Status: Never used Tobacco e-Cigarette/Vaping Use: Never Used Second Hand Smoke Exposure: No Substance Use Type: Marijuana service: No Current occupational status: employed Current occupation: [employer] Current occupational exposures/hazards: No Cognitive needs: No Hearing needs: No Vision needs: Yes (contacts/ glasses) Questionnaire Thrive Questionnaire Date Thrive assessed: 11/06/24 I am a: Patient What is your living situation today?: I have a steady place to live Within the past 12 months, did the food you bought not last and you didn't have the money to get more?: Never true Within the past 12 months, did you worry whether your food would run out before you got money to buy more?: Never true Do you have trouble paying for medicines?: No Do you have trouble getting transportation to medical appointments?: No Do you have trouble paying your heating and electricity bill?: No Do you have trouble taking care of your child, family member or friend?: No Do you have trouble with day-to-day activities such as bathing, preparing meals, shopping, managing finances, etc.?: No Are you currently unemployed and looking for a job?: No Are you interested in more education?: No Currently or been in a relationship where the following occur: No concerns reported THRIVE Score: 0 CISCO-7 AMB Questionnaire CISCO-7 Date CISCO - 7 assessed: 11/13/24 Source: Developed by Drs. Abe Loya, Manju Lagunas, Onur Santos and colleagues, with an educational blake from [employer]. Physical exam (Primary Care) Vital Signs: Last Vital Signs Temp 98.7 F 06/18/25 14:49 Pulse 88 06/18/25 14:49 Resp 12 06/18/25 14:49 BP 110/62 06/18/25 14:49 General: Well-appearing, alert, oriented ?3, in no acute distress. HEENT: Normocephalic, atraumatic, PERRLA, EOMI, no scleral icterus. External ears normal, tympanic membranes intact bilaterally, no erythema or effusion. Erythematous nasal mucosa. Posterior oropharyngeal erythema. Neck Supple. Cardiovascular: RRR, S1-S2 appreciated, no murmurs, rubs or gallops. Respiratory: Lungs clear to auscultation bilaterally, no wheezes, crackles or rhonchi. BMI result Body Mass Index 31.0 Tobacco/Smoking Status: Tobacco use Status Tobacco use date assessed 04/11/25 06/18/25 14:47 Patient Tobacco Use Status Never used Tobacco 06/18/25 14:47 e-Cigarette/Vaping Use Never Used 06/18/25 14:47 Thrive Assessment: Date of Thrive Assessment Date Thrive assessed 11/06/24 06/18/25 14:47 Currently or been in a relationship where the following occur: No concerns reported Coding Level of Care Code Est Pt Level 3 (81402) Diagnoses Upper respiratory tract infection, unspecified type J06.9 URI type: unspecified URI Assessment & Plan Assessment & Plan (1) URI (upper respiratory infection): Code(s): J06.9 - Acute upper respiratory infection, unspecified Qualifiers: URI type: unspecified URI Qualified Code(s): J06.9 - Acute upper respiratory infection, unspecified Plan: Patient presenting symptoms of viral URI. Patient has history of asthma but denies shortness of breath or wheezing, not in acute distress. Test for influenza/COVID/RSV. Symptomatic management with ibuprofen p.r.n. pain and headaches, Robitussin p.r.n. cough and loratadine daily for 5-7 days. Orders: Orders SARS-CoV2/FLU/RSV Today R05.9 - Cough, unspecified Medications: New dextromethorphan-guaifenesin 5-100 mg/5 mL (Robitussin Cough-Chest Congestion DM) 10 mL PO Q4-8H PRN 500 mL 0RF cough loratadine 10 mg PO DAILY 30 tabs 0RF
[2025-06-18 14:49] VITALS: BP 110/62; PULSE 88; RESP 12; TEMP 37.1; BMI 31.0
--- OUTSIDE RECORDS SUMMARY | 2025-06-18 17:52 | XMS_ITS | Clinical Summary ---
[facility] Organization [facility] Address [address] [place] [address] Care Team Providers Care Clerk Secretary Name Role Phone Jason Post MD Primary [...] on file Sexual Orientation Not on file Last Filed Vital Signs [...] Depression Screening 06/28/2024 COVID-19 Vaccine (1 - 2024-2 6 season) 2025 Influenza Vaccine (#1) 2025 04/29/2017 [...] RESULTING AGENCY - 02/17/2024 1:30 PM EDT [id number] THINPREP PAP, IMAGED: NEGATIVE FOR SQUAMOUS INTRAEPITHELIAL [...] Recently Relevant to Health Maintenance Care Teams Clerk Secretary Relationship Specialty Start Date End Date Jason Post MD PCP - General Internal Medicine 08/28/19
--- OUTSIDE RECORDS SUMMARY | 2025-06-18 17:52 | XMS_ITS | Clinical Summary ---
Author Organization [employer] Address [address] [facility] [address] [place] [address] Care Team Providers Care Utility Sales Representative Name Role Phone Unavailable Primary Care Provider [...] 1992 HIV Screening 1992 SDOH Screening 1992 Disability Screening 1992 Alcohol/Substance Use Screening 2004 Tobacco Screening 2004 Family Planning (PISQ) 2007 HPV Vaccines (1 - 3-dose series) 2007 Hepatitis C Screening 2010 Hepatitis B Vaccines (1 of 3 - 19+ 3-dose series) 2011 Pap Smear 2013 Cervical Cancer Screening 2022 HPV/Cotest 2022 COVID-19 Vaccine (1 - 2024-2 6 season) 2025 Influenza Vaccine (#1) 2025 , 04/29/2017 DTaP/Tdap/Td Vaccines (3 - T d or Tdap) 02/02/2029 02/02/2019, 02/10/2017 Zoster Vaccines (1 of 2) 2042 RSV Patients and Patients Aged 60 years or older (1 - 1-dose 75+ series) 2067 HIB [...] Years) and At-Risk Patients (6 to 49) Years Aged Out No longer eligible b ased on patient's age to complete this topic RSV under 20 months Aged Out No longe r eligible based on patient's age to complete this topic Rotavirus Vaccines Aged Out No longer eligible based on patient's age to complete this topic Insurance , [address] [place] [id number]
== END 2025-06-18 15:09 | disposition home or self-care (01) ==
LOC: HO.HMCH 14:26
PROVIDERS: PCP Physician Assistant; Visit Provider Student in an Organized Health Care Education/Training Program
DX: J06.9 Acute upper respiratory infection, unspecified (principal)

== ENCOUNTER 2025-06-18 14:25 | Outpatient (REF) | payer OTHER, SELFPAY ==
--- OUTSIDE RECORDS SUMMARY | 2025-06-18 19:05 | XMS_ITS | Encounter Summary ---
Author Organization [facility] Prior to 04/28/2024 Address [address] [place] [address] Care Team Providers Care Hedge Fund Manager Name Role Phone Mee Gordno MD Primary Care Provider Aj Constantino MD Primary Care Provider Un available Mee Gordon MD Primary Care Provider Orville Sears MD Primary Care Provider [facility] Jason Lamar MD Primary Care Provider [phone] Encounter Details Date Type Department Care Team Description 01/15/2017 Transfer Records Medical Records [address] [place] [address] Abstract, Provider Social History Tobacco Use Types [...] on filedocumented in this encounter Care Teams Hedge Fund Manager Relationship Specialty Start Date End Date Mee Gordon MD PCP - General Internal Medicine 09/24/16 04/26/17 Aj Langston MD PCP - General Internal Medicine 04/27/17 Mee Gordon MD PCP - General Internal Medicine 10/14/18 03/02/19 Orville Gupta MD PCP - General Internal Medicine 03/03/19 08/27/19 Jason Post MD [address] [place] [id number] PCP - General Internal Medicine 08/28/19 documented as of this encounter
--- OUTSIDE RECORDS SUMMARY | 2025-06-18 19:05 | XMS_ITS | Encounter Summary ---
Author Organization [facility] Prior to 04/28/2024 Address [address] [place] [address] Care Team Providers Care Process Development Engineer Name Role Phone Mee Gordon MD Primary Care Provider Aj Constantino MD Primary Care Provider Un available Mee Gordon MD Primary Care Provider Orville Sears MD Primary Care Provider [facility] Jason Lamar MD Primary Care Provider [phone] Reason for Visit * Reason Comments E-prescribe Rx Request Encounter Details Date Type Department Care Team Description 04/26/2017 Refill [facility] - [place] [address] [place] [address] Emily Lujan CNM [address] [place] [address] E-prescribe Rx Request Social History [...] 9:27 AM EST This pt is a [place] pt documented in this encounter Plan of Treatment Not on file documented as of this encounter Visit Diagnoses Not on filedocumented in this encounter Care Teams Process Development Engineer Relationship Specialty Start Date End Date Mee Gordon MD PCP - General Internal Medicine 09/24/16 04/26/17 Aj Langston MD PCP - General Internal Medicine 04/27/17 Mee Gordon MD PCP - General Internal Medicine 10/14/18 03/02/19 Orville Gupta MD PCP - General Internal Medicine 03/03/19 08/27/19 Jason Post MD [address] [place] [id number] PCP - General Internal Medicine 08/28/19 documented as of this encounter
--- OUTSIDE RECORDS SUMMARY | 2025-06-18 19:05 | XMS_ITS | Encounter Summary ---
Author Organization [facility] Prior to 04/28/2024 Address [address] [place] [address] Care Team Providers Care Policy Advisor Name Role Phone Aj Langston MD Primary Care Provider Un available Mee Gordon MD Primary Care Provider Orville Sears MD Primary Care Provider Unavail able Jason Post MD Primary Care Provider [phone] Encounter Details Date Type Department Care Team Description 02/22/2018 Pt. Non Urgent Medic al Question Adult Medicine [address] [address] Aj Langston MD Social History Tobacco Use [...] on filedocumented in this encounter Care Teams Policy Advisor Relationship Specialty Start Date End Date Aj Langston MD PCP - General Internal Medicine 04/27/17 Mee Gordon MD PCP - General Internal Medicine 10/14/18 03/02/19 Orville Gupta MD PCP - General Internal Medicine 03/03/19 08/27/19 Jason Post MD [address] [place] [id number] PCP - General Internal Medicine 08/28/19 documented as of this encounter
--- OUTSIDE RECORDS SUMMARY | 2025-06-18 19:05 | XMS_ITS | Clinical Summary ---
Author Organization [facility] Prior to 04/28/2024 Address [address] [place] [address] Care Team Providers Care Stained Glass Glazier Name Role Phone Jason Post MD Primary Care Provider + [phone] Allergies No known active allergies Medications Medication Sig Dispensed Refills Start Date End Date Status clobetasol (TEMOVATE) 0.05 % creamIndications:Jens mora, unspecified type Apply sparingly to eczema patches [...] , antepartu m 08/29/2018 04/21/2019 Overview: 1. [facility] site: [place] [address] 2. Delivery site: [facility] 3. Dating criteria: First trimester ultrasound only [...] Overview: [facility] - missed . <10 weeks GA Ultrasound [...] fax[facility] for medical records [facility]. 10-07-16, awaiting records. Encounter for supervision of normal 04/16/2017 Overview: 1. [facility] site: [place] [address] 2. Delivery site: [facility] 3. Dating criteria: DYUEN 03-27-17 confirmed by ultrasound at 5w 6d on 07-31-16 3. Blood type: A+ 4. Genetic screening: Date: NEGATIVE Result: 03/03/2017 5. GBS: NEGATIVE Date: 03/03/2017 6. FOB name: 7. Plans A. Epidural or other pain management - undecided B. Labor support identified - C. Tdap - Date: 02/10/2017 D. Breast or Bottle feed: breast E. Baby's name - Raulito Mercado. Circumcision - yes Pedi: HPA PPCM Depo [...] 70 02/10/2024 2:41 PM EDT Temperature 37 C (98.6 F) 09/13/2020 8:46 AM EDT Respiratory Rate 14 [...] HEALTH EXAM 18-39 02/18/202502/18, 05/10/2017, 04/29/2017 INFLUENZA (#1) 2025 03/18/2023, 02/27, 04/29/2017 CERVICAL CANCER SCREENING 02/09/20272023, 02/20/2020, 01/24/2020, Additional history exists DTAP/TDAP/TD (3 - Td or Tdap) 02/02/2029 02/02/2019, 02/10/2017 Care Teams Stained Glass Glazier Relationship Specialty Start Date End Date Jason Post MD [address] [place] [address] [id number] PCP - General Internal Medicine 08/28/19
--- OUTSIDE RECORDS SUMMARY | 2025-06-18 19:05 | XMS_ITS | Encounter Summary ---
Author Organization [facility] Prior to 04/28/2024 Address [address] [place] [address] Care Team Providers Care Chart Clerk Name Role Phone Aj Langston MD Primary Care Provider Un available Mee Gordon MD Primary Care Provider Orville Sears MD Primary Care Provider Unavail able Jason Post MD Primary Care Provider + [phone] Encounter Details Date Type Department Care Team Description 05/03/2017 Release of Information Medical Records [address] [place] [id number] Abstract, Provider Social History Tobacco Use Types [...] on filedocumented in this encounter Care Teams Chart Clerk Relationship Specialty Start Date End Date Aj Langston MD PCP - General Internal Medicine 04/27/17 Mee Gordon MD PCP - General Internal Medicine 10/14/18 03/02/19 Orville Gupta MD PCP - General Internal Medicine 03/03/19 08/27/19 Jason Post MD [address] [place] [id number] PCP - General Internal Medicine 08/28/19 documented as of this encounter
[2025-06-18 19:21] LABS: Resp Syncy Virus RNA Qual PCR NEGATIVE (Negative); SARS COV2 PCR INHOUSE NEGATIVE (Negative)
== END 2025-06-18 14:26 | disposition home or self-care (01) ==
LOC: HO.LNP 14:25
PROVIDERS: PCP Physician Assistant; Visit Provider Student in an Organized Health Care Education/Training Program
DX: J06.9 Acute upper respiratory infection, unspecified (principal); R05.9 Cough, unspecified
CPT/HCPCS: 87637